=== PATIENT | female | born 1940 | race Caucasian/White ===

== ENCOUNTER 2020-07-30 15:10 | Inpatient (IN) | payer MEDICARE, SELFPAY ==
[2020-07-30] VITALS (19 sets, daily range): BP systolic 138; BP diastolic 68–88; PULSE 84–100; RESP 12–25; TEMP 37.1; O2SAT 93–100; BMI 40.8
--- NOTE | ~2020-07-30 | XR_ITS ---
XR surgery orthopedic DATE: 08/01/2020 13:25 INDICATION: ORIF intertrochanteric fracture TECHNIQUE: Multiple spot C-arm images of the left femur 128.8 seconds [id number] mGym2 COMPARISON: 07/30/2020 left hip FINDINGS: Intramedullary yonatan and interlocking compression screw of the left femur provided virtually anatomic position and alignment at the major proximal and distal fracture fragments of the intertroch anteric left hip fracture. IMPRESSION: Status post open reduction and internal fixation of comminuted left intertrochanteric hip fracture with virtually anatomic position and alignment of the major fragments Reviewed, dictated and finalized at [facility]. Reviewed, dictated and finalized at [facility].
--- NOTE | ~2020-07-30 | CT_ITS ---
EXAMINATION: CT brain wo con INDICATION: Head injury COMPARISON: None TECHNIQUE: Standard unenhanced head CT. The dose-length product (DLP) was 605.33 mGy-cm. The mA was a djusted according to patient size. Iterative reconstruction technique was employed. FINDINGS: There is no acute intraparenchymal hemorrhage. No evidence of mass lesion. No evidence of a cute infarction. There is mild periventricular and subcortical hypodensity probably related to small vessel ischemic disease. There is mild prominence of the sulci and ventricles related to cerebral atr ophy. Intracranial calcified cerebral atherosclerosis is noted. There are no extra-axial collections. There is no mass effect or midline shift. Changes in the globes are likely from ocular lens surgery. There is right frontal scalp soft tissue swelling. The visualized sinuses and mastoid air cells are well aerated. IMPRESSION: 1. No acute intracranial abnormality. 2. Age related findings. Reviewed, dictated and finalized at location [facility].
--- NOTE | ~2020-07-30 | XR_ITS ---
EXAMINATION: XR hip LT 2V w AP pelvis INDICATION: Left hip pain, initial encounter AP view the pelvis and TECHNIQUE: AP view of the pelvis and three views of the left hip are obtained. COMPARISON: None available FINDINGS: There is an acute, comminuted intertrochanteric fracture of the left proximal femur. The le sser trochanter is present on a separate fracture fragment. The femoral head is seated in the acetabu lum. No additional acute osseous abnormality is identified. The bowel gas pattern is normal. IMPRESSION: 1. Comminuted intertrochanteric fracture of the left femur. Reviewed, dictated and finalized at location [facility].
[2020-07-30] MEDS: MORPHINE SULFATE (*CRX) 2 MG/ML INJ IV PUSH ×2 (16:27→20:36)
--- NOTE | 2020-07-30 16:39 | ECG_ITS ---
Measurements Intervals [place] Rate: 80 P: -1 MT: 143 QRS: 27 QRSD: 79 T: 47 QT: 351 QTc: 406 Interpretive Statements SINUS RHYTHM MINIMAL Q WAVES- INFERIOR LEADS BORDERLINE ECG Electronically Signed On 07-30-2020 20:46:31 CDT by Aryan Callahan D.O.
--- NOTE | 2020-07-30 16:48 | ED.FALL ---
HPI - Fall General Chief Complaint: Fall <Jayleen Philip PA-C - Last Filed: 07/30/20 18:06> Stated Complaint: FALL/L HIP PAIN <Jayleen Philip PA-C - Last Filed: 07/30/20 18:06> Time Seen by Provider: 07/30/20 15:19 <Jayleen Philip PA-C - Last Filed: 07/30/20 18:06> Source: patient <ONI Boyer Last Filed: 07/30/20 18:06> Mode of arrival: EMS <ONI Boyer Last Filed: 07/30/20 18:06> Limitations: physical limitation <ONI Boyer Last Filed: 07/30/20 18:06> History of Present Illness HPI Narrative: Patient presents with chief complaint of pain to her left hip that began just prior to arrival after falling and landing on her left lateral side. Patient reports that she has pain to the outer aspect of her left hip. She reports decreased ability to move the leg without pain. Patient reports she also hit her head but denies loss of consciousness. Patient takes a daily aspirin but denies any additional blood thinner usage. Patient denies any chest pain, shortness of breath, changes of vision or hearing, nausea, vomiting, diarrhea, fever, cough or any other symptoms. Patient denies any prior hip fractures reports her only other orthopedic issue was with a shoulder. <ONI Boyer Last Filed: 07/30/20 18:06> Related Data Home Medications: Home Medications Medication Instructions Recorded Confirmed amlodipine 5 mg tablet 5 mg PO DAILY 11/05/19 07/30/20 aspirin 81 mg tablet,delayed 81 mg PO DAILY 11/05/19 07/30/20 release atorvastatin 20 mg tablet 20 mg PO DAILY 11/05/19 07/30/20 diclofenac 75 mg-misoprostol 200 1 tablet PO BID 11/05/19 07/30/20 mcg tablet,immediate,delayed release irbesartan 150 mg tablet 150 mg PO DAILY 11/05/19 07/30/20 metformin 500 mg tablet 500 mg PO DAILY 11/05/19 07/30/20 omeprazole 40 mg capsule,delayed 40 mg PO DAILY 11/05/19 07/30/20 release tramadol 50 mg tablet 50 mg PO Q6H PRN 11/05/19 07/30/20 vitamin B complex 1 tablet PO DAILY 11/05/19 hydrochlorothiazide 12.5 mg PO DAILY 07/30/20 07/30/20 <Jayleen Philip PA-C - Last Filed: 07/30/20 18:06> Allergies/Adverse Reactions: Allergies Allergy/AdvReac Type Severity Reaction Status Date / Time No Known Allergies Allergy Verified 11/05/19 08:56 <Jayleen Philip PA-C - Last Filed: 07/30/20 18:06> Review of Systems Review of Systems: Narrative: CONSTITUTIONAL: Denies fever, chills, or sweats. EYES: Denies visual changes, redness, or discharge. ENT: Denies rhinorrhea, congestion, sore throat, or otalgia. CARDIOVASCULAR: Denies chest pain, palpitations, or edema. RESPIRATORY: Denies cough or dyspnea. GASTROINTESTINAL: Denies abdominal pain, nausea, vomiting, or diarrhea. GENITOURINARY: Denies dysuria or hematuria. SKIN: Denies rash or itching. MUSCULOSKELETAL: Reports left hip pain denies back pain or myalgia NEUROLOGIC: Denies headache, numbness, dizziness, or weakness. PSYCHIATRIC: Denies anxiety or depression. <Jayleen Philip PA-C - Last Filed: 07/30/20 18:06> [facility] Past Medical History Medical History: Medical History (Updated 07/30/20 @ 18:53 by Fani Yao MD) Melanoma <Jayleen Philip PA-C - Last Filed: 07/30/20 18:06> Surgical History Surgical History: Surgical History (Updated 11/05/19 @ 09:01 by Felisha Lawson CMA) History of ankle surgery History of cholecystectomy <Jayleen Philip PA-C - Last Filed: 07/30/20 18:06> Exam Narrative: Exam Narrative: GENERAL: Well-appearing, well-nourished. Patient appears intermittently uncomfortable. More comfortable with pillow under lateral left hip. HEAD: Normocephalic, atraumatic. No lacerations or hematomas appreciated. EYES: PERRLA and EOMI. ENT: Nares clear, no rhinorrhea or epistaxis. Mucous membranes moist. Oropharynx without tonsillar hypertrophy exudate or other lesions. Bilateral TMs pearly guevara nonbulging NECK: Supple. No adenopathy or
[2020-07-30] MEDS: SODIUM CHLORIDE 0.9% IV 1,000 ML 80 ML IV CONT (16:50)
[2020-07-30 16:56] LABS: Basophils Percent Auto 0.1 % (0.2-1.2); Eosinophils Absolute Auto 0.2 K/mm3 (0-0.3); Eosinophils Percent Auto 1.3 % (0-4.4); Hematocrit 34.1 % (37.0-47.0); Hemoglobin 11.2 g/dL (12.0-15.0); Immature Granulocyte Absolute 0.24 K/mm3 (0.00-0.031); Immature Granulocyte Percent A 1.7 % (0-0.5); Lymphocytes Absolute Auto 1.57 K/mm3 (0.9-3.2); Mean Corpuscular HGB Conc 32.8 g/dl (32-36); Mean Corpuscular Volume 97.4 fl (80-100); Mean Platelet Volume 8.2 fl (7.4-10.4); Monocytes Absolute Auto 1.1 K/mm3 (0.1-0.6); Monocytes Percent Auto 7.9 % (2.6-8.5); Neutrophils Absolute Auto 11.1 K/mm3 (1.3-6.7); Platelet Count Result 327 k/mm3 (150-375); Red Cell Distribution Width 12.9 % (11.5-14.5); White Blood Count 14.2 K/mm3 (4.5-10.0)
[2020-07-30 17:05] LABS: Prothrombin Time 13.3 Seconds (11.1-14.7)
[2020-07-30 17:06] LABS: Partial Thromboplastin Time 22.6 SECONDS (22.3-36.8)
--- NOTE | 2020-07-30 17:10 | PC.NURSE ---
Pt taken to CT scan
[2020-07-30 17:12] LABS: Alanine Aminotransferase 25 U/L (4-35); Albumin Level 3.6 g/dL (3.5-5.1); Alkaline Phosphatase 69 U/L (38-126); Anion Gap 6 mmol/L (8-16); Aspartate Amino Transferase 22 U/L (14-36); Bilirubin,Total 0.4 mg/dL (0.2-1.3); Blood Urea Nitrogen 39 mg/dL (7-17); Calcium 8.8 mg/dL (8.4-10.2); Carbon Dioxide 28 mmol/L (22-30); Chloride 104 mmol/L (98-107); Estimated CRCL calculation 30 ml/min; Estimated Glomerular Filt Rate 43; Glucose 105 mg/dL (65-105); Potassium 4.2 mmol/L (3.4-5.0); Sodium 138 mmol/L (137-145)
--- NOTE | 2020-07-30 20:09 | ADMGEN ---
This patient, Ephraim Marrufo, was admitted to [facility] Surg Room 305-02. Patient/family oriented to hospital policies and general routines including ID bracelet, bed and alarms, visiting hours, pain management, procedures, bathroom and other care routines, personal items, smoking policy, room service/diet, and visiting hours. Valuables list has been completed. Information on how to activate the Rapid Response Team has been discussed. Patient/Family are encouraged to report perceived risks to care and to ask questions if they do not understand what they are told or what they should do.
[2020-07-31] MEDS: MORPHINE SULFATE (*CRX) 2 MG/ML INJ IV PUSH ×4 (00:22→21:22)
--- NOTE | 2020-07-31 03:52 | ECG_ITS ---
Measurements Intervals [place] Rate: 80 P: 69 CT: 154 QRS: 48 QRSD: 78 T: 51 QT: 350 QTc: 406 Interpretive Statements SINUS RHYTHM BASELINE ARTIFACT- I, III, AVL, AVF, V2 NORMAL ECG Electronically Signed On 07-31-2020 7:29:17 CDT by Aryan Callahan D.O.
--- NOTE | 2020-07-31 05:29 | HP_ITS ---
DATE OF SERVICE: 07/31/2020 TIME: 0300 hours. CHIEF COMPLAINT: Fall with left hip pain. HISTORY OF PRESENT ILLNESS: The patient is an 79-year-old female with a past medical history of type 2 diabetes mellitus, hypertension, hyperlipidemia, and hyperparathyroidism status post parathyroidectomy, who presented to the ER on July 30, 2020, after having a fall. The patient reported that she had been out earlier in the day grocery shopping and had returned home to put up her groceries. She turned around in her kitchen and was rushing across the floor when she somehow tripped and fell. She felt as if she was air-borne before she landed on her left hip. She did hit her head on the social service agency director on her way down, but denies any headache or loss of consciousness. She reported instant severe pain in her left hip and was unable to get up. She lives at [facility] living with her . She was able to get her to hand her the phone so that she could call a friend who notified [facility] staff about the fall. The patient has never had a prior fracture. She reports that she is relatively active and has never had any chest pain, palpitations, dyspnea on exertion, or lower extremity swelling. She denies any nausea or vomiting, or abdominal complaints. Her last bowel movement was within the last day. She denies any dysuria or changes in urinary frequency. She recently had a parathyroidectomy in June and had her followup appointment with the doctor a few days ago. She denies any visual changes or headache currently. REVIEW OF SYSTEMS: Except as documented, all systems were reviewed and are negative. PAST MEDICAL HISTORY: 1. Type 2 diabetes mellitus. 2. Diabetic peripheral neuropathy, mainly in the feet. 3. Essential hypertension. 4. Hyperlipidemia. 5. Hyperparathyroidism, status post parathyroidectomy in June 2020. 6. Malignant melanoma removed from the left arm several years ago. 7. Cholecystectomy. 8. Left shoulder arthroplasty. 9. Bilateral cataract extraction. SOCIAL HISTORY: The patient lives at [facility] living with her who is suffering from dementia. She has 2 adult daughters who are relatively healthy. She and her have been since 1955. She is a former smoker and used to smoke 2 packs per day for approximately 30 years. She quit smoking in her early 50s. She reports that she never drinks alcohol at all and does not use drugs. She is a homemaker. CODE STATUS: Full code. ALLERGIES: NO KNOWN DRUG ALLERGIES. HOME MEDICATIONS: Please see electronic medical record. Home medications were reviewed and adjustment was made. PHYSICAL EXAMINATION: VITAL SIGNS: Temperature is 97, pulse is 68, respiratory rate 18, blood pressure 178/68, saturating 95% on room air, weight is 124 pounds. GENERAL: The patient is in no acute distress. Well developed, well nourished, appears younger than stated age. HEENT: Mucous membranes are dry. No oropharyngeal erythema. No scleral icterus. No conjunctival pallor. No thyromegaly. Head is normocephalic, atraumatic. HEMATOLOGIC/LYMPHATIC: No intercervical or submandibular lymphadenopathy. No petechiae or bruising. LUNGS: Clear to auscultation bilaterally. No increased work of breathing. CARDIOVASCULAR: Normal S1, S2. Regular rate, regular rhythm. No murmurs. 2+ pulses bilateral radial and pedal. ABDOMEN: Soft, nontender, nondistended with positive bowel sounds. NEUROLOGIC: The patient is alert and oriented x4. Speech is clear. No facial asymmetry. No localizing neurologic deficits noted on limited exam. PSYCHIATRIC: Appropriate mood and affect. Pleasant and cooperative. INTEGUMENT: No rashes. No bruising. Generalized pallor, no
[2020-07-31] MEDS: SODIUM CHLORIDE 0.9% IV 1,000 ML 80 ML IV CONT ×2 (05:59→21:27)
[2020-07-31 06:00] VITALS: BP 124/60; PULSE 81; RESP 18; TEMP 36.6; O2SAT 98
[2020-07-31] MEDS: amLODIPine BESYLATE 5 MG TABLET PO (09:11)
[2020-07-31] MEDS: ASPIRIN 81 MG ENTERIC TABLET PO (09:12)
[2020-07-31] MEDS: ATORVASTATIN 20 MG TABLET PO (09:12)
[2020-07-31] MEDS: PANTOPRAZOLE 40 MG TABLET PO ×2 (09:12→16:24)
[2020-07-31] MEDS: hydroCHLOROthiazide 12.5 MG CAPSULE PO (09:12)
[2020-07-31] MEDS: IRBESARTAN 150 MG TABLET PO (09:12)
--- NOTE | 2020-07-31 10:43 | WPDANESEPPF ---
Anes - Initial Pre Proc Eval Procedure: Operation Date: 08/01/20 11:30 Proposed Procedures p Intertrochanteric Nail Left Hip - Darron Llanos MD Date/Time: 07/31/20 10:43 Surgeon: MALLORIE Herring Pre Op Diagnosis: COMMINUTED LEFT INTRATROCHANTERIC FRACTURE Patient Data Age: 79 Gender: F Height: 1.78 m Weight: 129.2 kg Last Vital Signs Temp 36.6 C 07/31/20 06:00 Pulse 81 07/31/20 06:00 Resp 18 07/31/20 06:00 BP 124/60 07/31/20 06:00 Pulse Ox 98 07/31/20 06:00 Allergies Allergy/AdvReac Type Severity Reaction Status Date / Time No Known Allergies Allergy Verified 11/05/19 08:56 Home Medications Medication Instructions Recorded Confirmed Type amlodipine 5 mg tablet 5 mg PO DAILY 11/05/19 07/30/20 History aspirin 81 mg tablet,delayed 81 mg PO DAILY 11/05/19 07/30/20 History release atorvastatin 20 mg tablet 20 mg PO DAILY 11/05/19 07/30/20 History diclofenac 75 mg-misoprostol 200 1 tablet PO BID 11/05/19 07/30/20 History mcg tablet,immediate,delayed release irbesartan 150 mg tablet 150 mg PO DAILY 11/05/19 07/30/20 History omeprazole 40 mg capsule,delayed 40 mg PO DAILY 11/05/19 07/30/20 History release tramadol 50 mg tablet 50 mg PO Q6H PRN 11/05/19 07/30/20 History hydrochlorothiazide 12.5 mg PO DAILY 07/30/20 07/30/20 History metformin 750 mg PO BID 07/30/20 07/30/20 History Laboratory Tests 07/30/20 07/30/20 07/30/20 16:45 16:45 16:45 WBC 14.2 K/mm3 H K/mm3 (4.5-10.0) RBC 3.50 M/mm3 L M/mm3 (4.2-5.4) Hgb 11.2 g/dL L g/dL (12.0-15.0) Hct 34.1 % L % (37.0-47.0) MCV 97.4 fl fl (80-100) MCH 32.0 pg pg (26-34) MCHC 32.8 g/dl g/dl (32-36) RDW 12.9 % % (11.5-14.5) Plt Count 327 k/mm3 k/mm3 (150-375) MPV 8.2 fl fl (7.4-10.4) Immature Gran % (Auto) 1.7 % H % (0-0.5) Neut % (Auto) 78.0 % H % (45.5-73.1) Lymph % (Auto) 11.0 % L % (18.3-44.2) Alcorn % (Auto) 7.9 % % (2.6-8.5) Eos % (Auto) 1.3 % % (0-4.4) Baso % (Auto) 0.1 % L % (0.2-1.2) Lymph # (Auto) 1.57 K/mm3 K/mm3 (0.9-3.2) Alcorn # (Auto) 1.1 K/mm3 H K/mm3 (0.1-0.6) Eos # (Auto) 0.2 K/mm3 K/mm3 (0-0.3) Baso # (Auto) 0.0 K/mm3 K/mm3 (0.0-0.1) Abs Immat Gran (auto) 0.24 K/mm3 H K/mm3 (0.00-0.031) Absolute Neuts (auto) 11.1 K/mm3 H K/mm3 (1.3-6.7) Absolute Nucleated RBC 0.0 K/mm3 K/mm3 (0.0-0.012) Nucleated RBC % 0.0 % % (0.0-0.2) PT 13.3 Seconds Seconds (11.1-14.7) INR 1.0 APTT 22.6 SECONDS SECONDS (22.3-36.8) Sodium 138 mmol/L mmol/L (137-145) Potassium 4.2 mmol/L mmol/L (3.4-5.0) Chloride 104 mmol/L mmol/L (98-107) Carbon Dioxide 28 mmol/L mmol/L (22-30) Anion Gap 6 mmol/L L mmol/L (8-16) BUN 39 mg/dL H mg/dL (7-17) Creatinine 1.20 mg/dL H mg/dL (0.7-1.0) Estim Creat Clear Calc 30 ml/min ml/min Estimated GFR 43 L (59 - ) Glucose 105 mg/dL mg/dL (65-105) Calcium 8.8 mg/dL mg/dL (8.4-10.2) Total Bilirubin 0.4 mg/dL mg/dL (0.2-1.3) AST 22 U/L U/L (14-36) ALT 25 U/L U/L (4-35) Alkaline Phosphatase 69 U/L U/L (38-126) Total Protein 6.0 g/dL L g/dL (6.3-8.2) Albumin 3.6 g/dL g/dL (3.5-5.1) Blood Type Antibody Screen 07/30/20 16:48 WBC RBC Hgb Hct MCV MCH MCHC RDW Plt Count MPV Immature Gran % (Auto) Neut % (Auto) Lymph % (Auto) Alcorn % (Auto) Eos % (Auto) Baso % (Auto) Lymph # (Auto) Alcorn # (Auto) Eos # (Auto) Baso # (Auto) Abs Immat Gr
--- NOTE | 2020-07-31 11:17 | PM.IMPN ---
Progress Note: A&P Assessment and Plan (1) Closed comminuted fracture of left hip: Qualifiers: Encounter type: initial encounter Qualified Code(s): S72.092A - Other fracture of head and neck of left femur, initial encounter for closed fracture Code(s): S72.092A - Other fracture of head and neck of left femur, initial encounter for closed fracture Status: Acute Assessment and Plan: Patient presented with left hip pain after a fall at home. XR demonstrates comminuted intertrochanteric left femur fracture. Dr. Llanos consulted - appreciate recommendations. Believe plan is for surgical intervention tomorrow. Postoperative wound care, pain control, and DVT prophylaxis per orthopedic surgery recommendations. (2) Diabetes: Qualifiers: Diabetes mellitus type: type 2 Diabetes mellitus termite inspector insulin use: without termite inspector use Diabetes mellitus complication status: without complication Qualified Code(s): E11.9 - Type 2 diabetes mellitus without complications Code(s): E11.9 - Type 2 diabetes mellitus without complications Status: Chronic Assessment and Plan: Blood sugars are appropriate. Metformin is held. Continue to monitor with Accu-Cheks and adjust treatment as needed. (3) Hypertension: Qualifiers: Hypertension type: essential hypertension Qualified Code(s): I10 - Essential (primary) hypertension Code(s): I10 - Essential (primary) hypertension Status: Chronic Assessment and Plan: BPs reviewed and stable. Continue home Norvasc and HCTZ. Monitor BP and adjust treatment as needed. (4) Hyperlipidemia: Qualifiers: Hyperlipidemia type: unspecified Qualified Code(s): E78.5 - Hyperlipidemia, unspecified Code(s): E78.5 - Hyperlipidemia, unspecified Status: Chronic Assessment and Plan: Continue home statin therapy. (5) FABRIZIO (acute kidney injury): Code(s): N17.9 - Acute kidney failure, unspecified Status: Resolved Assessment and Plan: Cr 1.2 on arrival, improved to 0.8 this morning. Will monitor renal function. (6) Hypomagnesemia: Code(s): E83.42 - Hypomagnesemia Status: Acute Assessment and Plan: Magnesium 1.3, replace parenterally. Recheck in AM. Subjective Date/time seen: 07/31/20 1000 Interval history: Ms. Marrufo is a pleasant 79yo F admitted for left hip fracture. She rates her pain 3/10 at this time, otherwise offers no complaints. She denies chest pain, shortness of breath, nausea or vomiting. Review of Systems Review of Systems: All systems reviewed & are unremarkable except as noted in HPI and below Exam Narrative: Exam Narrative: General: Female resting comfortably supine in bed in no acute distress. HEENT: Normocephalic, EOMI, oral mucosa moist. Cardiovascular: Rate and rhythm are regular. Respiratory: Lungs clear to auscultation anteriorly and laterally. Non-labored breathing. Tolerating room air. Abdomen: Soft, non-tender, non-distended, bowel sounds present. Extremities: Peripheral pulses intact. No edema. Left lower extremity is shortened and externally rotated, neurovascularly intact distal to the surgical site. Neuro: No focal neurological deficits. Speech is clear. Objective Data Vital Signs Vital Signs: Last Vital Signs Temp 98.4 F 07/31/20 14:00 Pulse 94 07/31/20 14:00 Resp 16 07/31/20 14:00 BP 124/49 L 07/31/20 14:00 Pulse Ox 96 07/31/20 14:00 Intake/Output Intake/Output: Intake & Output 10/0507/29/20 07/30/20 07/31/20 23:59 23:59 23:59 23:59 Intake Total 0 Output Total 600 Balance -600 Meds/Results Medications: Active
[2020-07-31 11:30] LABS: Glucose Point of Care 82 (65-105)
[2020-07-31 12:14] LABS: Basophils Percent Auto 0.2 % (0.2-1.2); Eosinophils Absolute Auto 0.2 K/mm3 (0-0.3); Hematocrit 28.8 % (37.0-47.0); Hemoglobin 9.6 g/dL (12.0-15.0); Immature Granulocyte Absolute 0.11 K/mm3 (0.00-0.031); Lymphocytes Absolute Auto 1.27 K/mm3 (0.9-3.2); Lymphocytes Percent Auto 11.3 % (18.3-44.2); Mean Corpuscular HGB Conc 33.3 g/dl (32-36); Mean Corpuscular Hemoglobin 32.3 pg (26-34); Mean Platelet Volume 8.6 fl (7.4-10.4); Monocytes Absolute Auto 1.1 K/mm3 (0.1-0.6); Monocytes Percent Auto 9.8 % (2.6-8.5); Neutrophils Absolute Auto 8.5 K/mm3 (1.3-6.7); Neutrophils Percent Auto 75.7 % (45.5-73.1); Platelet Count Result 280 k/mm3 (150-375); Red Blood Count 2.97 M/mm3 (4.2-5.4); Red Cell Distribution Width 12.7 % (11.5-14.5); White Blood Count 11.3 K/mm3 (4.5-10.0)
[2020-07-31 12:28] LABS: Anion Gap 7 mmol/L (8-16); Blood Urea Nitrogen 25 mg/dL (7-17); Calcium 8.2 mg/dL (8.4-10.2); Carbon Dioxide 27 mmol/L (22-30); Chloride 106 mmol/L (98-107); Estimated CRCL calculation 70 ml/min; Estimated Glomerular Filt Rate > 60; Glucose 96 mg/dL (65-105); Magnesium 1.3 mg/dL (1.6-2.3); Potassium 3.8 mmol/L (3.4-5.0); Sodium 140 mmol/L (137-145)
[2020-07-31 14:00] VITALS: BP 124/49; PULSE 94; RESP 16; TEMP 36.9; O2SAT 96
[2020-07-31] MEDS: MAGNESIUM SULF 2 GM/WATER 50ML 2 GM/50 ML BAG IVPB (16:02)
[2020-07-31] MEDS: MAGNESIUM SULF 1 GM/D5W 100 ML 1 GM/100 ML BAG IVPB (16:02)
--- NOTE | 2020-07-31 16:57 | PM.CNOR ---
Assessment and Plan Assessment and plan (1) Closed comminuted fracture of left hip: Qualifiers: Encounter type: initial encounter Qualified Code(s): S72.092A - Other fracture of head and neck of left femur, initial encounter for closed fracture Code(s): S72.092A - Other fracture of head and neck of left femur, initial encounter for closed fracture Status: Acute Assessment and Plan: Comminuted and displaced intertrochanteric fracture of the left hip. Significant deformity. Will benefit from ORIF with Cephalomedullary nail. Discussed the significant risks with the patient and her daughter. Benefits and alternatives reviewed. Will likely need halfway for several weeks. Anticipate weight-bearing as tolerated. History of Present Illness HPI Consult date: 07/31/20 Chief complaint: COMMINUTED LEFT INTRATROCHANTERIC FRACTURE Narrative: Patient complains of acute hip pain. Fell from standing height. Admitted through the emergency room for definitive managmenet. No previous hip pain. Comfortable at rest. No numbness, tingling, or other associated symptoms. Review of Systems Review of Systems: Narrative: Denies loss of consciousness. All systems reviewed & are unremarkable except as noted in HPI and below PMFSH Past Medical History Medical History Diabetes Hyperlipidemia Hypertension Melanoma Surgical History Surgical History History of ankle surgery History of cholecystectomy Family History Family History Father CHF (congestive heart failure) Sibling CHF (congestive heart failure) Social History Social History Smoking packs per day: 2 Smoking cigarettes per day: 40.0 Years smoked: 25 Smoking pack-years: 50.00 Smoking status: Former smoker Alcohol intake: never Substance use: never Spiritual care concerns: No Meds Home Medications and Allergies Home Medications Medication Instructions Recorded Confirmed Type amlodipine 5 mg tablet 5 mg PO DAILY 11/05/19 07/30/20 History aspirin 81 mg tablet,delayed 81 mg PO DAILY 11/05/19 07/30/20 History release atorvastatin 20 mg tablet 20 mg PO DAILY 11/05/19 07/30/20 History diclofenac 75 mg-misoprostol 200 1 tablet PO BID 11/05/19 07/30/20 History mcg tablet,immediate,delayed release irbesartan 150 mg tablet 150 mg PO DAILY 11/05/19 07/30/20 History omeprazole 40 mg capsule,delayed 40 mg PO DAILY 11/05/19 07/30/20 History release tramadol 50 mg tablet 50 mg PO Q6H PRN 11/05/19 07/30/20 History hydrochlorothiazide 12.5 mg PO DAILY 07/30/20 07/30/20 History metformin 750 mg PO BID 07/30/20 07/30/20 History Allergies Allergy/AdvReac Type Severity Reaction Status Date / Time No Known Allergies Allergy Verified 11/05/19 08:56 Vital Signs Vital Signs - 24 hr 07/30/20 17:02 07/30/20 17:26 07/30/20 17:30 Temperature Pulse Rate 100 84 85 Respiratory Rate 17 19 19 Blood Pressure Pulse Oximetry 100 98 100 07/30/20 18:00 07/30/20 18:20 07/30/20 18:30 Temperature Pulse Rate 86 92 91 Respiratory Rate 16 22 H 20 Blood Pressure Pulse Oximetry 99 98 98 07/30/20 18:45 07/30/20 19:00 07/30/20 19:24 Temperature Pulse Rate 89 91 92 Respiratory Rate 17 15 25 H Blood Pressure Pulse Oximetry 98 99 98 07/30/20 19:30 07/30/20 19:41 07/30/20 20:00 Temperature 37.1 C Pulse Rate 90 90 88 Respiratory Rate 15 15 18 Blood Pressure 138/68 Pulse Oximetry 98 98 95 07/31/20 06:00 07/31/20 14:00 Temperature 36.6 C 36.9 C Pulse Rate 81 94 Respiratory Rate 18 16 Blood Pressure 124/60 124/49 L Pulse Oximetry 98 96 Exam Narrative: Exam Narrative: Lower extremity shortened and externally rotated. Const: General: no acute distres
[2020-07-31 17:19] LABS: Glucose Point of Care 142 (65-105)
[2020-07-31 22:00] VITALS: BP 129/57; PULSE 86; RESP 16; TEMP 36.5; O2SAT 98
[2020-08-01] VITALS (14 sets, daily range): BP systolic 86–134; BP diastolic 43–76; PULSE 70–101; RESP 12–20; TEMP 36.2–37.7; O2SAT 92–100
[2020-08-01 00:35] LABS: Glucose Point of Care 169 (65-105)
[2020-08-01] MEDS: MORPHINE SULFATE (*CRX) 2 MG/ML INJ IV PUSH ×3 (04:38→22:17)
[2020-08-01 06:43] LABS: Basophils Percent Auto 0.2 % (0.2-1.2); Eosinophils Absolute Auto 0.3 K/mm3 (0-0.3); Eosinophils Percent Auto 2.8 % (0-4.4); Hematocrit 26.5 % (37.0-47.0); Hemoglobin 8.7 g/dL (12.0-15.0); Immature Granulocyte Absolute 0.09 K/mm3 (0.00-0.031); Immature Granulocyte Percent A 0.8 % (0-0.5); Lymphocytes Absolute Auto 1.28 K/mm3 (0.9-3.2); Lymphocytes Percent Auto 11.2 % (18.3-44.2); Mean Corpuscular HGB Conc 32.8 g/dl (32-36); Mean Corpuscular Hemoglobin 32.1 pg (26-34); Mean Corpuscular Volume 97.8 fl (80-100); Mean Platelet Volume 8.2 fl (7.4-10.4); Monocytes Absolute Auto 1.3 K/mm3 (0.1-0.6); Neutrophils Absolute Auto 8.5 K/mm3 (1.3-6.7); Platelet Count Result 228 k/mm3 (150-375); Red Blood Count 2.71 M/mm3 (4.2-5.4); Red Cell Distribution Width 12.7 % (11.5-14.5); White Blood Count 11.4 K/mm3 (4.5-10.0)
[2020-08-01 07:07] LABS: Anion Gap 5 mmol/L (8-16); Blood Urea Nitrogen 20 mg/dL (7-17); Carbon Dioxide 27 mmol/L (22-30); Chloride 106 mmol/L (98-107); Estimated CRCL calculation 70 ml/min; Estimated Glomerular Filt Rate > 60; Glucose 121 mg/dL (65-105); Sodium 138 mmol/L (137-145)
[2020-08-01 08:02] LABS: Hemoglobin A1C 5.8 % (<5.7)
[2020-08-01 08:05] LABS: Magnesium 1.6 mg/dL (1.6-2.3)
[2020-08-01 08:23] LABS: Glucose Point of Care 113 (65-105)
[2020-08-01] MEDS: amLODIPine BESYLATE 5 MG TABLET PO (08:34)
[2020-08-01] MEDS: PANTOPRAZOLE 40 MG TABLET PO ×2 (08:34→17:23)
[2020-08-01] MEDS: SODIUM CHLORIDE 0.9% IV 1,000 ML 80 ML IV CONT (09:21)
--- NOTE | 2020-08-01 10:20 | PC.NURSE ---
To OR per bed, IV infusing. Report given to - sbar faxed to OR.
--- NOTE | 2020-08-01 11:11 | WPDHPUPDATE1 ---
History and Physical Update Update Date/Time: 08/01/20 11:11 History and Physical has been reviewed, including an updated exam of the patient. There are NO changes in the patient's condition. Risks, benefits, and alternatives have been discussed and questions answered. Patient agrees to proceed with procedure.
--- NOTE | 2020-08-01 11:25 | SUR.PREOP ---
Documented weight is off by quite a lot. Due to pain I can't put her on a scale right now so documented a stated weight which is visually much more believable.
[2020-08-01] MEDS: ceFAZolin SODIUM 1 GM VIAL 2 GM IV PUSH (12:17)
[2020-08-01] MEDS: LACTATED RINGERS 1,000 ML 30 ML IV CONT (13:00)
[2020-08-01 13:59] LABS: SARS-CoV-2 RNA PCR Negative
[2020-08-01 14:05] LABS: Glucose Point of Care 130 (65-105)
--- NOTE | 2020-08-01 14:09 | PM.IMPN ---
Progress Note: A&P Assessment and Plan (1) Closed comminuted fracture of left hip: Qualifiers: Encounter type: initial encounter Qualified Code(s): S72.092A - Other fracture of head and neck of left femur, initial encounter for closed fracture Code(s): S72.092A - Other fracture of head and neck of left femur, initial encounter for closed fracture Status: Acute Assessment and Plan: Patient presented with left hip pain after a fall at home. XR demonstrates comminuted intertrochanteric left femur fracture. Dr. Llanos following - appreciate input. Plan is for surgical repair this morning. Postoperative wound care, pain control, and DVT prophylaxis per orthopedic surgery recommendations. (2) Diabetes: Qualifiers: Diabetes mellitus type: type 2 Diabetes mellitus extermination inspector insulin use: without fdc use Diabetes mellitus complication status: without complication Qualified Code(s): E11.9 - Type 2 diabetes mellitus without complications Code(s): E11.9 - Type 2 diabetes mellitus without complications Status: Chronic Assessment and Plan: Blood sugars are appropriate. Metformin is held. Continue to monitor with Accu-Cheks and adjust treatment as needed. (3) Hypertension: Qualifiers: Hypertension type: essential hypertension Qualified Code(s): I10 - Essential (primary) hypertension Code(s): I10 - Essential (primary) hypertension Status: Chronic Assessment and Plan: BPs reviewed, some hypotension in PACU now resolved; last BP 113/76. Will hold morning Norvasc and HCTZ and reassess in AM. Continue to monitor BP and adjust treatment as needed. (4) Hyperlipidemia: Qualifiers: Hyperlipidemia type: unspecified Qualified Code(s): E78.5 - Hyperlipidemia, unspecified Code(s): E78.5 - Hyperlipidemia, unspecified Status: Chronic Assessment and Plan: Continue home statin therapy. (5) FABRIZIO (acute kidney injury): Code(s): N17.9 - Acute kidney failure, unspecified Status: Resolved Assessment and Plan: Cr 1.2 on arrival, improved to 0.8. Will monitor renal function. (6) Hypomagnesemia: Code(s): E83.42 - Hypomagnesemia Status: Acute Assessment and Plan: Magnesium 1.6, replaced. Recheck in AM. Subjective Date/time seen: 08/01/20 1000 Interval history: Ms. Marrufo is a pleasant 79yo F admitted for left hip fracture. She reports feeling pretty well this morning. She describes some back discomfort from lying in bed compared to her hip discomfort which is reasonably controlled at this time. No chest pain, shortness of breath, nausea or vomiting. She offers no complaints and is heading to the OR shortly for surgery with Dr Llanos. Review of Systems Review of Systems: All systems reviewed & are unremarkable except as noted in HPI and below Exam Narrative: Exam Narrative: General: Female resting comfortably supine in bed in no acute distress. HEENT: Normocephalic, EOMI, oral mucosa moist. Cardiovascular: Rate and rhythm are regular. Respiratory: Lungs clear to auscultation anteriorly and laterally. Non-labored breathing. Tolerating room air. Abdomen: Soft, non-tender, non-distended, bowel sounds present. Extremities: Peripheral pulses intact. No edema. Left lower extremity is shortened and externally rotated, neurovascularly intact distal to the surgical site. Neuro: No focal neurological deficits. Speech is clear. Objective Data Vital Signs Vital Signs: Last Vital Signs Temp 98.2 F 08/01/20 13:55 Pulse 92 08/01/20 15:24 Resp 18 08/01/20 15:24 BP 113/76 08/01/20 15:24 Pulse Ox 98 10/0
[2020-08-01] MEDS: fentaNYL CITRATE INJ (*CRX) 100 MCG/2 ML VIAL 25 MCG IV PUSH ×3 (14:26→15:07)
--- NOTE | 2020-08-01 14:40 | P.OP_ITS ---
Procedure Note - Detailed Date of procedure: 08/01/20 Pre-op diagnosis: COMMINUTED LEFT INTRATROCHANTERIC FRACTURE Post-op diagnosis: same Procedure performed: ORIF intertrochanteric fracture with long Cephalomedullary nail. Implants: Kandi Gamma nail, 380mm; 95mm lag screw. Anesthesia: GETA Surgeon: Darron Llanos MD [place]: Corrina Bolton PA-C Estimated blood loss (mL): 150 Drains: No Pathology: none sent Complications: None Condition: stable Disposition: PACU Findings: Operative details. The patient was given a general anesthetic, then carefully placed in fracture table. Sterile prep and drape performed in the usual fashion. Sterile curtain was used. Gentle traction was utilized to reduce the fracture. Fluoroscopy was used to confirm anatomic reduction and a proper placement of the implants. A longitudinal incision was created at the tip of the trochanter. The deep fascia was incised. The cannulated awl was used to open the proximal femur. The guidewire was placed across the fracture. The reamer was used to open the canal. Sequential reaming was performed distally to 11.5 mm. Bone quality was good. Chatter obtained at the isthmus. The gamma nail was placed across the fracture site. A separate incision was made for placement of the cannulated guide sleeve. This was extended slightly to allow for placement of a bone hook. This was placed over the neck fragment in attempt to maintain and improve the reduction. The guide pin was placed in the center of the femoral head, slightly inferior. Appropriate measurement was taken. The pin was over reamed. The screw was placed with excellent purchase. The set screw was placed proximally and backed out a quater turn. The jig was removed. Distal locking was performed using a freehand technique. The wounds were irrigated. The deep fascia was closed with #1 Vicryl suture followed by 2- 0 Vicryl suture and greta. Sterile dressing was applied. The patient was transferred to the recovery room in stable condition. There were no complications.
--- NOTE | 2020-08-01 15:30 | PC.NURSE ---
Returned from OR per bed. Report received from RN. daughter at bedside. patient tearful states felt afraid in OR.
[2020-08-01] MEDS: MAGNESIUM SULF 2 GM/WATER 50ML 2 GM/50 ML BAG IVPB (15:52)
[2020-08-01] MEDS: KCL 20 MEQ/D5/0.45% SOD CHL 1,000 ML 80 ML IV CONT (15:52)
[2020-08-01 17:24] LABS: Glucose Point of Care 240 (65-105)
[2020-08-01] MEDS: DOCUSATE SODIUM 100 MG CAPSULE PO (20:36)
[2020-08-01 20:42] LABS: Glucose Point of Care 288 (65-105)
[2020-08-02 02:00] VITALS: BP 119/53; PULSE 86; RESP 16; TEMP 35.9; O2SAT 100
[2020-08-02] MEDS: MORPHINE SULFATE (*CRX) 2 MG/ML INJ IV PUSH ×2 (04:36→09:01)
[2020-08-02 04:57] LABS: Basophils Percent Auto 0.1 % (0.2-1.2); Eosinophils Absolute Auto 0.1 K/mm3 (0-0.3); Eosinophils Percent Auto 0.6 % (0-4.4); Hematocrit 23.6 % (37.0-47.0); Hemoglobin 7.8 g/dL (12.0-15.0); Immature Granulocyte Percent A 0.7 % (0-0.5); Lymphocytes Absolute Auto 1.12 K/mm3 (0.9-3.2); Mean Corpuscular HGB Conc 33.1 g/dl (32-36); Mean Corpuscular Hemoglobin 32.1 pg (26-34); Mean Corpuscular Volume 97.1 fl (80-100); Mean Platelet Volume 8.5 fl (7.4-10.4); Monocytes Absolute Auto 1.1 K/mm3 (0.1-0.6); Monocytes Percent Auto 7.5 % (2.6-8.5); Neutrophils Absolute Auto 11.6 K/mm3 (1.3-6.7); Neutrophils Percent Auto 83.1 % (45.5-73.1); Platelet Count Result 207 k/mm3 (150-375); Red Blood Count 2.43 M/mm3 (4.2-5.4); Red Cell Distribution Width 12.5 % (11.5-14.5); White Blood Count 13.9 K/mm3 (4.5-10.0)
[2020-08-02 05:24] LABS: Anion Gap 4 mmol/L (8-16); Blood Urea Nitrogen 17 mg/dL (7-17); Calcium 7.6 mg/dL (8.4-10.2); Carbon Dioxide 25 mmol/L (22-30); Chloride 105 mmol/L (98-107); Estimated CRCL calculation 59 ml/min; Estimated Glomerular Filt Rate > 60; Glucose 252 mg/dL (65-105); Magnesium 1.9 mg/dL (1.6-2.3); Potassium 4.5 mmol/L (3.4-5.0); Sodium 134 mmol/L (137-145)
[2020-08-02 06:00] VITALS: BP 123/58; PULSE 87; RESP 18; TEMP 36.2; O2SAT 100
[2020-08-02 08:00] VITALS: PULSE 87; RESP 18; O2SAT 100
[2020-08-02] MEDS: ASPIRIN 81 MG ENTERIC TABLET PO (08:57)
[2020-08-02] MEDS: hydroCHLOROthiazide 12.5 MG CAPSULE PO (08:57)
[2020-08-02] MEDS: ENOXAPARIN 40 MG/0.4 ML SYRINGE SUB-Q (08:57)
[2020-08-02] MEDS: DOCUSATE SODIUM 100 MG CAPSULE PO ×2 (08:57→21:39)
[2020-08-02] MEDS: IRBESARTAN 150 MG TABLET PO (08:57)
[2020-08-02] MEDS: PANTOPRAZOLE 40 MG TABLET PO ×2 (08:57→17:20)
[2020-08-02] MEDS: amLODIPine BESYLATE 5 MG TABLET PO (08:58)
[2020-08-02] MEDS: ATORVASTATIN 20 MG TABLET PO (08:58)
[2020-08-02 09:18] LABS: Glucose Point of Care 113 (65-105)
--- NOTE | 2020-08-02 11:50 | WPDANESPN ---
Anes - Prog Note Post-Op Date/Time: 08/02/20 11:50 Cardiovascular status: normal Respiratory status: normal Airway patency: baseline Mental status: baseline Post-Op hydration status: normal Vital Signs: Last Vital Signs Temp 36.2 C L 08/02/20 06:00 Pulse 87 08/02/20 08:00 Resp 18 08/02/20 08:00 BP 123/58 L 08/02/20 06:00 Pulse Ox 100 08/02/20 08:00 Pain Score (VAS): 0 I/O: Intake & Output 08/01/20 08/02/20 08/02/20 23:59 07:59 15:59 Intake Total 840 1400 240 Output Total 1100 Balance 840 300 240 Laboratory Tests 08/02/20 04:18 08/02/20 04:18 08/01/20 08/01/20 08/01/20 04:33 14:03 17:21 WBC RBC Hgb Hct MCV MCH MCHC RDW Plt Count MPV Immature Gran % (Auto) Neut % (Auto) Lymph % (Auto) Hinds % (Auto) Eos % (Auto) Baso % (Auto) Lymph # (Auto) Hinds # (Auto) Eos # (Auto) Baso # (Auto) Abs Immat Gran (auto) Absolute Neuts (auto) Absolute Nucleated RBC Nucleated RBC % Sodium Potassium Chloride Carbon Dioxide Anion Gap BUN Creatinine Estim Creat Clear Calc Estimated GFR Glucose POC Capillary Glucose 130 H 240 H Calcium Magnesium SARS-CoV-2 RNA (RT-PCR) Negative 08/01/20 08/02/20 08/02/20 20:39 04:18 04:18 WBC 13.9 H RBC 2.43 L Hgb 7.8 L Hct 23.6 L MCV 97.1 MCH 32.1 MCHC 33.1 RDW 12.5 Plt Count 207 MPV 8.5 Immature Gran % (Auto) 0.7 H Neut % (Auto) 83.1 H Lymph % (Auto) 8.0 L Hinds % (Auto) 7.5 Eos % (Auto) 0.6 Baso % (Auto) 0.1 L Lymph # (Auto) 1.12 Hinds # (Auto) 1.1 H Eos # (Auto) 0.1 Baso # (Auto) 0.0 Abs Immat Gran (auto) 0.10 H Absolute Neuts (auto) 11.6 H Absolute Nucleated RBC 0.0 Nucleated RBC % 0.0 Sodium 134 L Potassium 4.5 Chloride 105 Carbon Dioxide 25 Anion Gap 4 L BUN 17 Creatinine 0.70 Estim Creat Clear Calc 59 Estimated GFR > 60 Glucose 252 H POC Capillary Glucose 288 H Calcium 7.6 L Magnesium 1.9 SARS-CoV-2 RNA (RT-PCR) 08/02/20 08:55 WBC RBC Hgb Hct MCV MCH MCHC RDW Plt Count MPV Immature Gran % (Auto) Neut % (Auto) Lymph % (Auto) Hinds % (Auto) Eos % (Auto) Baso % (Auto) Lymph # (Auto) Hinds # (Auto) Eos # (Auto) Baso # (Auto) Abs Immat Gran (auto) Absolute Neuts (auto) Absolute Nucleated RBC Nucleated RBC % Sodium Potassium Chloride Carbon Dioxide Anion Gap BUN Creatinine Estim Creat Clear Calc Estimated GFR Glucose POC Capillary Glucose 113 H Calcium Magnesium SARS-CoV-2 RNA (RT-PCR) Post-procedural complaints: none Patient Feedback: Patient satisfied with anesthetic care.
--- NOTE | 2020-08-02 12:33 | PM.IMPN ---
Progress Note: A&P Assessment and Plan (1) Closed comminuted fracture of left hip: Qualifiers: Encounter type: initial encounter Qualified Code(s): S72.092A - Other fracture of head and neck of left femur, initial encounter for closed fracture Code(s): S72.092A - Other fracture of head and neck of left femur, initial encounter for closed fracture Status: Acute Assessment and Plan: Patient presented with left hip pain after a fall at home. XR demonstrated comminuted intertrochanteric left femur fracture. She is now POD#1 s/p ORIF intertrochanteric fracture with nail by Dr. Llanos 08/01/20. Postoperative wound care, pain control, and DVT prophylaxis per orthopedic surgery recommendations. (2) Diabetes: Qualifiers: Diabetes mellitus complication status: without complication Diabetes mellitus longterm insulin use: without manager terminal use Diabetes mellitus type: type 2 Qualified Code(s): E11.9 - Type 2 diabetes mellitus without complications Code(s): E11.9 - Type 2 diabetes mellitus without complications Status: Chronic Assessment and Plan: Hgb A1c 5.8. Resume metformin. Continue to monitor with Accu-Cheks and adjust treatment as needed. (3) Hypertension: Qualifiers: Hypertension type: essential hypertension Qualified Code(s): I10 - Essential (primary) hypertension Code(s): I10 - Essential (primary) hypertension Status: Chronic Assessment and Plan: BPs stable/on low end of normal. Continue home Norvasc and HCTZ. Continue to monitor BP and adjust treatment as needed. (4) Hyperlipidemia: Qualifiers: Hyperlipidemia type: unspecified Qualified Code(s): E78.5 - Hyperlipidemia, unspecified Code(s): E78.5 - Hyperlipidemia, unspecified Status: Chronic Assessment and Plan: Continue home statin therapy. (5) Hypomagnesemia: Code(s): E83.42 - Hypomagnesemia Status: Acute Assessment and Plan: Magnesium as low as 1.3 and replaced. Improved to 1.9 today. Start oral magnesium oxide and monitor. Subjective Date/time seen: 08/02/20 1100 Interval history: Ms. Marrufo is a pleasant 79yo F admitted for left hip fracture now POD#1 s/p ORIF nail by Dr Llanos. She is pretty uncomfortable this morning having already worked with therapy earlier and sat up in the chair. She denies any chest pain or shortness of breath. She was nauseous this morning secondary to pain trying to get out of the chair with therapy, she said it did not last long and she is no longer nauseous. No vomiting. Review of Systems Review of Systems: All systems reviewed & are unremarkable except as noted in HPI and below Exam Narrative: Exam Narrative: General: Female resting supine in bed in no acute respiratory distress, a bit uncomfortable in pain. HEENT: Normocephalic, EOMI, oral mucosa moist. Cardiovascular: Rate and rhythm are regular. Respiratory: Lungs clear to auscultation anteriorly and laterally. Non-labored breathing. Tolerating room air. Abdomen: Soft, non-tender, non-distended, bowel sounds present. Extremities: Peripheral pulses intact. Left hip dressing is clean, dry, intact. Left lower extremity is neurovascularly intact distal to the surgical site. Neuro: No focal neurological deficits. Speech is clear. Objective Data Vital Signs Vital Signs: Last Vital Signs Temp 97.2 F L 08/02/20 06:00 Pulse 87 08/02/20 08:00 Resp 18 08/02/20 08:00 BP 123/58 L 08/02/20 06:00 Pulse Ox 100 08/02/20 08:00 Intake/Output Intake/Output: Intake & Output 07/30/20 07/31/20 08/01/20 10/10/20 23:59 23:59 23:59 23:59 Intake Total 2130 3090 1640 Output Total 1150 1860 1100 Balance
[2020-08-02 14:00] VITALS: BP 122/57; PULSE 96; RESP 16; TEMP 36.7; O2SAT 95
[2020-08-02] MEDS: ACETAMINOPHEN 500 MG TABLET 1000 MG PO (17:19)
[2020-08-02] MEDS: metFORMIN HCL 500 MG TABLET PO (17:20)
[2020-08-02 19:28] LABS: Glucose Point of Care 159 (65-105)
[2020-08-02 19:28] LABS: Glucose Point of Care 129 (65-105)
[2020-08-02] MEDS: MAGNESIUM OXIDE 200 MG TABLET PO (21:39)
[2020-08-02 21:47] LABS: Glucose Point of Care 129 (65-105)
[2020-08-02 21:56] VITALS: BP 108/55; PULSE 86; RESP 16; TEMP 36.8; O2SAT 97
[2020-08-03] MEDS: ACETAMINOPHEN 500 MG TABLET 1000 MG PO ×2 (03:38→14:20)
[2020-08-03 05:56] LABS: Basophils Percent Auto 0.2 % (0.2-1.2); Eosinophils Absolute Auto 0.4 K/mm3 (0-0.3); Eosinophils Percent Auto 3.4 % (0-4.4); Hematocrit 23.1 % (37.0-47.0); Hemoglobin 7.6 g/dL (12.0-15.0); Immature Granulocyte Absolute 0.09 K/mm3 (0.00-0.031); Immature Granulocyte Percent A 0.7 % (0-0.5); Lymphocytes Absolute Auto 1.36 K/mm3 (0.9-3.2); Mean Corpuscular HGB Conc 32.9 g/dl (32-36); Mean Corpuscular Hemoglobin 32.1 pg (26-34); Mean Corpuscular Volume 97.5 fl (80-100); Mean Platelet Volume 8.7 fl (7.4-10.4); Monocytes Absolute Auto 1.1 K/mm3 (0.1-0.6); Monocytes Percent Auto 8.7 % (2.6-8.5); Neutrophils Absolute Auto 9.4 K/mm3 (1.3-6.7); Platelet Count Result 213 k/mm3 (150-375); Red Blood Count 2.37 M/mm3 (4.2-5.4); Red Cell Distribution Width 12.8 % (11.5-14.5); White Blood Count 12.4 K/mm3 (4.5-10.0)
[2020-08-03 06:00] VITALS: BP 115/53; PULSE 87; RESP 18; TEMP 36.6; O2SAT 99
[2020-08-03 06:06] LABS: Anion Gap 6 mmol/L (8-16); Blood Urea Nitrogen 21 mg/dL (7-17); Calcium 8.1 mg/dL (8.4-10.2); Carbon Dioxide 28 mmol/L (22-30); Chloride 104 mmol/L (98-107); Estimated CRCL calculation 47 ml/min; Estimated Glomerular Filt Rate 60; Glucose 127 mg/dL (65-105); Magnesium 1.9 mg/dL (1.6-2.3); Potassium 4.6 mmol/L (3.4-5.0); Sodium 138 mmol/L (137-145)
[2020-08-03] MEDS: ATORVASTATIN 20 MG TABLET PO (08:11)
[2020-08-03] MEDS: metFORMIN HCL 500 MG TABLET PO ×2 (08:11→17:53)
[2020-08-03] MEDS: ASPIRIN 81 MG ENTERIC TABLET PO (08:11)
[2020-08-03] MEDS: amLODIPine BESYLATE 5 MG TABLET PO (08:11)
[2020-08-03] MEDS: ENOXAPARIN 40 MG/0.4 ML SYRINGE SUB-Q (08:12)
[2020-08-03] MEDS: MAGNESIUM OXIDE 200 MG TABLET PO ×2 (08:12→20:28)
[2020-08-03] MEDS: hydroCHLOROthiazide 12.5 MG CAPSULE PO (08:12)
[2020-08-03] MEDS: DOCUSATE SODIUM 100 MG CAPSULE PO ×2 (08:12→20:28)
[2020-08-03] MEDS: IRBESARTAN 150 MG TABLET PO (08:12)
[2020-08-03] MEDS: PANTOPRAZOLE 40 MG TABLET PO ×2 (08:13→17:53)
--- NOTE | 2020-08-03 09:57 | PM.IMPN ---
Progress Note: A&P Assessment and Plan (1) Closed comminuted fracture of left hip: Qualifiers: Encounter type: initial encounter Qualified Code(s): S72.092A - Other fracture of head and neck of left femur, initial encounter for closed fracture Code(s): S72.092A - Other fracture of head and neck of left femur, initial encounter for closed fracture Status: Acute Assessment and Plan: Patient presented with left hip pain after a fall at home. XR demonstrated comminuted intertrochanteric left femur fracture. She is now POD#2 s/p ORIF intertrochanteric fracture with nail by Dr. Llanos 08/01/20. Postoperative wound care, pain control, and DVT prophylaxis per orthopedic surgery recommendations. (2) Diabetes: Qualifiers: Diabetes mellitus type: type 2 Diabetes mellitus ferry terminal agent insulin use: without ferry terminal agent use Diabetes mellitus complication status: without complication Qualified Code(s): E11.9 - Type 2 diabetes mellitus without complications Code(s): E11.9 - Type 2 diabetes mellitus without complications Status: Chronic Assessment and Plan: Hgb A1c 5.8. Continue metformin. Continue to monitor with Accu-Cheks and adjust treatment as needed. (3) Hypertension: Qualifiers: Hypertension type: essential hypertension Qualified Code(s): I10 - Essential (primary) hypertension Code(s): I10 - Essential (primary) hypertension Status: Chronic Assessment and Plan: BPs stable/on low end of normal. Continue home Norvasc and HCTZ. Continue to monitor BP and adjust treatment as needed. (4) Hyperlipidemia: Qualifiers: Hyperlipidemia type: unspecified Qualified Code(s): E78.5 - Hyperlipidemia, unspecified Code(s): E78.5 - Hyperlipidemia, unspecified Status: Chronic Assessment and Plan: Continue home statin therapy. (5) Hypomagnesemia: Code(s): E83.42 - Hypomagnesemia Status: Acute Assessment and Plan: Magnesium was as low as 1.3 and replaced. Improved to 1.9 today. Continue oral magnesium oxide and monitor. Subjective Date/time seen: 08/03/20 09:15 Interval history: Ms. Marrufo is a pleasant 79yo F admitted for left hip fracture now POD#2 s/p ORIF nail by Dr Llanos. She describes left hip pain worse with getting up out of bed to the chair with therapy, but overall improved from yesterday. At time of my encounter she is sitting up in the bedside chair eating breakfast comfortably. She denies any chest pain, shortness of breath, nausea, or vomiting. No BM since surgery, but she has passed gas. Review of Systems Review of Systems: All systems reviewed & are unremarkable except as noted in HPI and below Exam Narrative: Exam Narrative: General: Female resting comfortably sitting up in bedside chair in no acute distress. HEENT: Normocephalic, EOMI, oral mucosa moist. Cardiovascular: Rate and rhythm are regular. Respiratory: Lungs clear to auscultation in all wilks. Non-labored breathing. Tolerating room air. Abdomen: Soft, non-tender, non-distended, bowel sounds present. Extremities: Peripheral pulses intact. Left hip dressing is clean, dry, intact. Left lower extremity is neurovascularly intact distal to the surgical site. Neuro: No focal neurological deficits. Speech is clear. Objective Data Vital Signs Vital Signs: Last Vital Signs Temp 97.9 F 08/03/20 06:00 Pulse 87 08/03/20 06:00 Resp 18 08/03/20 06:00 BP 115/53 L 08/03/20 06:00 Pulse Ox 99 08/03/20 06:00 Intake/Output Intake/Output: Intake & Output 07/31/20 08/01/20 08/02/2008/03/20 23:59 23:59 23:59 23:59 Intake Total 2130 3090 2320 300 Output Total 1150 1860 1750 1100 Balance
--- NOTE | 2020-08-03 11:03 | PM.PNORT ---
Progress Note: A&P Assessment and Plan (1) Closed comminuted fracture of left hip: Qualifiers: Encounter type: initial encounter Qualified Code(s): S72.092A - Other fracture of head and neck of left femur, initial encounter for closed fracture Code(s): S72.092A - Other fracture of head and neck of left femur, initial encounter for closed fracture Status: Acute Assessment and Plan: Status post op day 2 ORIF left intertrochanteric fracture with long cephalomedullary nail. Patient progressing well. Plan to discharge to rehab facility. Subjective Subjective Date/Time Seen: 08/03/20 11:03 Ephraim Marrufo is a 79-year-old female. She is postop day 2 ORIF left intertrochanteric fracture with long cephalomedullary nail. She is currently not complaining of any pain. No numbness or tingling distally. She has not attempted to walk with walker yet. No nausea or vomiting. No chest pain or shortness of breath.She has been sleeping well at night. Exam Const: General: cooperative, healthy appearing, comfortable, no acute distress, well developed, alert and awake Orientation/consciousness: oriented to person Extrem: General: capillary refill normal, no pedal edema, no calf tenderness and no edema Other: Patient resting comfortably in bed. Incisions healing well. No drainage. Calf nontender. Mild swelling. No ecchymosis. Distal pulses palpable. Normal light touch sensation. Objective Data Vital Signs Vital Signs: Vital Signs - 24 hr 08/02/20 14:00 08/02/20 21:56 08/03/20 06:00 Temperature 98.1 F 98.3 F 97.9 F Pulse Rate 96 86 87 Respiratory Rate 16 16 18 Blood Pressure 122/57 L 108/55 L 115/53 L Pulse Oximetry 95 97 99 Intake/Output Intake/Output: Intake & Output 07/31/20 08/01/20 08/02/20 08/03/20 23:59 23:59 23:59 23:59 Intake Total 2130 3090 2320 420 Output Total 1150 1860 1750 1100 Balance 980 1230 570 -680 Meds/Results Medications: Active Medications Generic Name Dose Route Start Last Admin Trade Name Freq PRN Reason Stop Dose Admin Acetaminophen 1,000 mg 08/02/20 13:43 08/03/20 03:38 Acetaminophen 500 Mg Tablet PO 1,000 mg Q6H PRN Administration Mild Pain (1-3) or Fever Amlodipine Besylate 5 mg 07/31/20 09:00 08/03/20 08:11 Amlodipine Besylate 5 Mg Tablet PO 5 mg DAILY BALA Administration Aspirin 81 mg 07/31/20 09:00 08/03/20 08:11 Aspirin 81 Mg Enteric Tablet PO 81 mg DAILY BALA Administration Atorvastatin Calcium 20 mg 07/31/20 09:00 08/03/20 08:11 Atorvastatin 20 Mg Tablet PO 20 mg DAILY BALA Administration Dextrose 12.5 gm 08/02/20 14:10 Dextrose 50% 25 Gm/50 Ml Syringe IV PUSH PRN PRN Hypoglycemia Protocol Docusate Sodium 100 mg 08/01/20 21:00 08/03/20 08:12 Docusate Sodium 100 Mg Capsule PO 100 mg Q12HR BALA Administration Enoxaparin Sodium 40 mg 08/02/20 09:00 08/03/20 08:12 Enoxaparin 40 Mg/0.4 Ml Syringe SUB-Q 40 mg DAILY BALA Administration Fentanyl Citrate 25 mcg 08/01/20 14:21 08/01/20 15:07 Fentanyl Citrate Inj (*Crx) 100 Mcg/2 Ml Vial IV PUSH 25 mcg Q2M PRN Administration Pain Glucagon 1 mg 08/02/20 14:10 Glucagon For Inj 1 Mg Vial IM PRN PRN Hypoglycemia Protocol Glucose 15 gm 08/02/20 14:10 Glucose Oral Gel 15 Gm Of Glucse In 37.5 Gm Tube PO PRN PRN Hypoglycemia Protocol Hydrochlorothiazide 12.5 mg 07/31/20 09:00 08/03/20 08:12 Hydrochlorothiazide 12.5 Mg Capsule PO 12.5 mg DAILY BALA Administration Lactated Ringer's 1,000 mls @ 30 mls/hr 08/01/20 14:25 08/02/20 17:35 Lr - Lactated Ringers Iv IV CONT Not Given .Q24H BALA Dextrose 1,000 mls @ 100 mls/hr 08/02/20 14:10 Dextrose 5% 1,000 Ml IVPB PRN PRN Hypoglycemia Protocol Insulin Aspart 2 - 5 units 08/03/20 12:00 Insulin Aspart (*Bkc) 100 Units/Ml SUB-Q TIDWM BALA Protocol Irbesartan 150 m
[2020-08-03 12:04] LABS: Glucose Point of Care 118 (65-105)
[2020-08-03 12:04] LABS: Glucose Point of Care 90 (65-105)
[2020-08-03 14:00] VITALS: BP 107/47; PULSE 109; RESP 20; TEMP 36.7; O2SAT 100
[2020-08-03 16:59] LABS: Glucose Point of Care 110 (65-105)
[2020-08-03 21:15] LABS: Glucose Point of Care 116 (65-105)
[2020-08-03 22:00] VITALS: BP 124/53; PULSE 97; RESP 16; TEMP 36.9; O2SAT 96
[2020-08-04] MEDS: ACETAMINOPHEN 500 MG TABLET 1000 MG PO ×2 (01:52→11:55)
[2020-08-04 06:00] VITALS: BP 106/58; PULSE 85; RESP 18; TEMP 36.7; O2SAT 96
[2020-08-04 06:31] LABS: Basophils Absolute Auto 0.1 K/mm3 (0.0-0.1); Basophils Percent Auto 0.3 % (0.2-1.2); Eosinophils Absolute Auto 0.5 K/mm3 (0-0.3); Hematocrit 24.3 % (37.0-47.0); Hemoglobin 7.8 g/dL (12.0-15.0); Immature Granulocyte Absolute 0.13 K/mm3 (0.00-0.031); Immature Granulocyte Percent A 0.8 % (0-0.5); Lymphocytes Absolute Auto 2.42 K/mm3 (0.9-3.2); Lymphocytes Percent Auto 15.2 % (18.3-44.2); Mean Corpuscular HGB Conc 32.1 g/dl (32-36); Mean Corpuscular Hemoglobin 31.8 pg (26-34); Mean Corpuscular Volume 99.2 fl (80-100); Monocytes Absolute Auto 1.1 K/mm3 (0.1-0.6); Neutrophils Absolute Auto 11.7 K/mm3 (1.3-6.7); Neutrophils Percent Auto 73.7 % (45.5-73.1); Platelet Count Result 275 k/mm3 (150-375); Red Blood Count 2.45 M/mm3 (4.2-5.4); Red Cell Distribution Width 12.8 % (11.5-14.5); White Blood Count 15.9 K/mm3 (4.5-10.0)
[2020-08-04] MEDS: ATORVASTATIN 20 MG TABLET PO (08:17)
[2020-08-04] MEDS: metFORMIN HCL 500 MG TABLET PO ×2 (08:17→17:30)
[2020-08-04] MEDS: ASPIRIN 81 MG ENTERIC TABLET PO (08:17)
[2020-08-04] MEDS: DOCUSATE SODIUM 100 MG CAPSULE PO (08:17)
[2020-08-04] MEDS: MAGNESIUM OXIDE 200 MG TABLET PO (08:18)
[2020-08-04] MEDS: ENOXAPARIN 40 MG/0.4 ML SYRINGE SUB-Q (08:18)
[2020-08-04] MEDS: PANTOPRAZOLE 40 MG TABLET PO ×2 (08:18→17:30)
[2020-08-04] MEDS: IRBESARTAN 150 MG TABLET PO (08:18)
[2020-08-04 12:05] LABS: Glucose Point of Care 105 (65-105)
[2020-08-04 12:11] LABS: Glucose Point of Care 103 (65-105)
[2020-08-04 14:00] VITALS: BP 107/52; PULSE 95; RESP 18; TEMP 36.9; O2SAT 97
[2020-08-04 15:27] LABS: Add Urine Microscopic? YES; Appearance Urine Cloudy (Clear); Bacteria Urine Trace /hpf; Bilirubin Urine Negative (Negative); Blood Urine Negative (Negative); Color Urine Yellow (Yellow); Glucose Urine UA Negative (Negative); Ketones Urine Negative (Negative); Leukocyte Esterase Ur 1+ LEU/UL (Negative); Mucus Urine Rare /lpf; Nitrate Urine Negative (Negative); Protein Urine Negative (Negative); RBC Urine 0-2 /hpf (0-2); Renal Epithelial Cells Urine Rare /hpf (None Seen); Specific Grav Ur 1.018 (1.001-1.035); Squamous Epithelial Cell Urine Many /hpf (Few); Urobilinogen Urine Negative mg/dL (<2.0)
--- NOTE | 2020-08-04 16:03 | PM.DS ---
DS: Admitting Diagnosis Admitting Diagnosis Admitting Diagnosis: COMMINUTED LEFT INTERTROCHANTERIC FRACTURE DS: Discharge Diagnosis Discharge Diagnosis (1) Closed comminuted fracture of left hip: Qualifiers: Encounter type: initial encounter Qualified Code(s): S72.092A - Other fracture of head and neck of left femur, initial encounter for closed fracture Code(s): S72.092A - Other fracture of head and neck of left femur, initial encounter for closed fracture Status: Acute Assessment and Plan: Date of Admission 07/30/20 Date of Discharge/ DOS 08/04/20 Ms. Marrufo is a pleasant 79yo F with history of non insulin dependent type 2 diabetes mellitus, hypertension, and hyperlipidemia who presented to the ED for evaluation of left hip pain after a fall at home. XR demonstrated comminuted intertrochanteric left femur fracture. She was evaluated by orthopedic surgery, Dr. Llanos, and underwent ORIF nail 08/01/2020. She tolerated the procedure well and worked with PT / OT postoperatively. She was felt to be a good candidate for continued therapy at inpatient rehab. She was hemodynamically stable for discharge to [facility] on 08/04/2020. Norvasc and HCTZ were held at discharge with blood pressures on the lower end. BP will be monitored in [facility], recommend adding these agents back as blood pressure allows. Patient presented with left hip pain after a fall at home. XR demonstrated comminuted intertrochanteric left femur fracture. s/p ORIF intertrochanteric fracture with nail by Dr. Llanos 08/01/20, discharged on POD#3 Postoperative wound care, pain control, and DVT prophylaxis per orthopedic surgery recommendations. (2) Diabetes: Qualifiers: Diabetes mellitus type: type 2 Diabetes mellitus mcc insulin use: without termite renewal inspector use Diabetes mellitus complication status: without complication Qualified Code(s): E11.9 - Type 2 diabetes mellitus without complications Code(s): E11.9 - Type 2 diabetes mellitus without complications Status: Chronic Assessment and Plan: Hgb A1c 5.8. Continue metformin. (3) Hypertension: Qualifiers: Hypertension type: essential hypertension Qualified Code(s): I10 - Essential (primary) hypertension Code(s): I10 - Essential (primary) hypertension Status: Chronic Assessment and Plan: BPs stable/on low end of normal, day of discharge held Norvasc and HCTZ. Continue to monitor BP and adjust treatment as needed. (4) Hyperlipidemia: Qualifiers: Hyperlipidemia type: unspecified Qualified Code(s): E78.5 - Hyperlipidemia, unspecified Code(s): E78.5 - Hyperlipidemia, unspecified Status: Chronic Assessment and Plan: Continue home statin therapy. (5) Hypomagnesemia: Code(s): E83.42 - Hypomagnesemia Status: Acute Assessment and Plan: Magnesium was as low as 1.3 and replaced. Improved to 1.9 prior to dc. Continue oral magnesium oxide. (6) Leukocytosis: Code(s): D72.829 - Elevated white blood cell count, unspecified Status: Acute Assessment and Plan: Unsure of chronicity. WBC fluctuated perioperatively. WBC 15,900 day of discharge. Patient shows no s/s of infection. UA obtained and does not demonstrate findings of infection, with many squamous cells suggesting contamination. No respiratory symptoms. WBC can be monitored after discharge. DS: Summary Time Spent with Patient Time attestation: Total time spent providing and/or coordinating discharge services: 35 minutes Exam Narrative: Exam Narrative: General: Female resting comfortably sitting up in beds
--- NOTE | 2020-08-04 16:48 | PM.PNORT ---
Progress Note: A&P Assessment and Plan (1) Closed comminuted fracture of left hip: Qualifiers: Encounter type: initial encounter Qualified Code(s): S72.092A - Other fracture of head and neck of left femur, initial encounter for closed fracture Code(s): S72.092A - Other fracture of head and neck of left femur, initial encounter for closed fracture Status: Acute Assessment and Plan: Progressing well after nailing of the left femur. Mobilizing with physical therapy. May be discharged to rehab. Subjective Subjective Date/Time Seen: 08/04/20 16:48 Interval history: Pain well controlled. Mobilizing well with physical therapy. Exam Narrative: Exam Narrative: Wound healing well. No drainage. Thigh soft. No hematoma. Distal neurologic status intact. Objective Data Vital Signs Vital Signs: Vital Signs - 24 hr 08/03/20 22:00 08/04/20 06:00 08/04/20 14:00 Temperature 36.9 C 36.7 C 36.9 C Pulse Rate 97 85 95 Respiratory Rate 16 18 18 Blood Pressure 124/53 L 106/58 L 107/52 L Pulse Oximetry 96 96 97 Intake/Output Intake/Output: Intake & Output 08/01/20 08/02/20 08/03/20 08/04/20 23:59 23:59 23:59 23:59 Intake Total 3090 2320 1170 980 Output Total 1860 1750 1800 700 Balance 1230 570 -630 280 Meds/Results Medications: Active Medications Generic Name Dose Route Start Last Admin Trade Name Freq PRN Reason Stop Dose Admin Acetaminophen 1,000 mg 08/02/20 13:43 08/04/20 11:55 Acetaminophen 500 Mg Tablet PO 1,000 mg Q6H PRN Administration Mild Pain (1-3) or Fever Amlodipine Besylate 5 mg 07/31/20 09:00 08/03/20 08:11 Amlodipine Besylate 5 Mg Tablet PO 5 mg DAILY BALA Administration Aspirin 81 mg 07/31/20 09:00 08/04/20 08:17 Aspirin 81 Mg Enteric Tablet PO 81 mg DAILY BALA Administration Atorvastatin Calcium 20 mg 07/31/20 09:00 08/04/20 08:17 Atorvastatin 20 Mg Tablet PO 20 mg DAILY BALA Administration Dextrose 12.5 gm 08/02/20 14:10 Dextrose 50% 25 Gm/50 Ml Syringe IV PUSH PRN PRN Hypoglycemia Protocol Docusate Sodium 100 mg 08/01/20 21:00 08/04/20 08:17 Docusate Sodium 100 Mg Capsule PO 100 mg Q12HR BALA Administration Enoxaparin Sodium 40 mg 08/02/20 09:00 08/04/20 08:18 Enoxaparin 40 Mg/0.4 Ml Syringe SUB-Q 40 mg DAILY BALA Administration Fentanyl Citrate 25 mcg 08/01/20 14:21 08/01/20 15:07 Fentanyl Citrate Inj (*Crx) 100 Mcg/2 Ml Vial IV PUSH 25 mcg Q2M PRN Administration Pain Glucagon 1 mg 08/02/20 14:10 Glucagon For Inj 1 Mg Vial IM PRN PRN Hypoglycemia Protocol Glucose 15 gm 08/02/20 14:10 Glucose Oral Gel 15 Gm Of Glucse In 37.5 Gm Tube PO PRN PRN Hypoglycemia Protocol Hydrochlorothiazide 12.5 mg 07/31/20 09:00 08/03/20 08:12 Hydrochlorothiazide 12.5 Mg Capsule PO 12.5 mg DAILY BALA Administration Lactated Ringer's 1,000 mls @ 30 mls/hr 08/01/20 14:25 08/03/20 20:28 Lr - Lactated Ringers Iv IV CONT Not Given .Q24H BALA Dextrose 1,000 mls @ 100 mls/hr 08/02/20 14:10 Dextrose 5% 1,000 Ml IVPB PRN PRN Hypoglycemia Protocol Insulin Aspart 2 - 5 units 08/03/20 12:00 08/04/20 11:59 Insulin Aspart (*Bkc) 100 Units/Ml SUB-Q Not Given TIDWM BALA Protocol Irbesartan 150 mg 07/31/20 09:00 08/04/20 08:18 Irbesartan 150 Mg Tablet PO 150 mg DAILY BALA Administration Magnesium Hydroxide 30 ml 08/01/20 15:25 Magnesium Hydroxide Susp 30 Ml Udc PO BID PRN Constipation Magnesium Oxide 200 mg 08/02/20 21:00 08/04/20 08:18 Magnesium Oxide 200 Mg Tablet PO 200 mg Q12HR BALA Administration Metformin HCl 500 mg 08/02/20 17:00 08/04/20 08:17 Metformin Hcl 500 Mg Tablet PO 500 mg BIDWM BALA Administration Morphine Sulfate 2 mg 07/30/20 17:34 08/02/20 09:01 Morphine Sulfate (*Crx) 2 Mg/Ml Inj IV PUSH 2 mg Q4H PRN
[2020-08-04 17:41] LABS: Glucose Point of Care 97 (65-105)
--- NOTE | 2020-08-04 18:26 | PC.NURSE ---
1800 dressing change to left hip completed
== END 2020-08-04 18:00 | DRG 481 ==
LOC: ANHED 16:54 → ANH3MEDSUR 17:55
PROVIDERS: Family Medicine; Orthopaedic Surgery; Physician Assistant; Admitting Provider Internal Medicine; Emergency Provider General Practice; PCP Internal Medicine; Visit Provider Physician Assistant
PROC: 0QS736Z Reposition Left Upper Femur with Intramedullary Internal Fixation Device, Percutaneous Approach (ICD-10-PCS; CPT 27245; principal; 2020-08-01 11:30)
DX: S72.142A Displaced intertrochanteric fracture of left femur, initial encounter for closed fracture (principal); N17.9 Acute kidney failure, unspecified; D62 Acute posthemorrhagic anemia; W19.XXXA Unspecified fall, initial encounter; Z20.828 Contact with and (suspected) exposure to other viral communicable diseases; E11.42 Type 2 diabetes mellitus with diabetic polyneuropathy; E78.5 Hyperlipidemia, unspecified; I10 Essential (primary) hypertension; E83.42 Hypomagnesemia; Z96.612 Presence of left artificial shoulder joint; Z85.820 Personal history of malignant melanoma of skin; Z90.49 Acquired absence of other specified parts of digestive tract; Z87.891 Personal history of nicotine dependence; Z98.42 Cataract extraction status, left eye; Z98.41 Cataract extraction status, right eye
CPT/HCPCS: 36415; 51702; 70450; 73502; 80048; 80053; 81001; 83036; 83735; 85025; 85610; 85730; 86850; 86900; 86901; 87077; 87086; 87088; 87186; 87635; 93005; 96374; 97110; 97116; 97162; 97165; 97535; 99285; A9270; C1713; C1769; C9803; J0690; J1100; J1650; J2270; J2370; J2405; J2704; J3010; J3475; J3480; J7030; J7120; U0003

== ENCOUNTER 2020-08-04 18:15 | IRF | payer MEDICARE, SELFPAY ==
--- NOTE | ~2020-08-04 | XR_ITS ---
EXAMINATION: XR femur LT min 2V EXAM DATE: 08/15/2020 17:19 INDICATION: 2 week post op ORIF left long gamma nail . TECHNIQUE: Left femur frontal and lateral projections of the proximal aspect, frontal and lateral pro jections of the lower aspect for review. Correlation is made to left hip 07/30/2020. FINDINGS: There is a femoral yonatan and gamma nail bridging the comminuted intertrochanteric fracture. Hardware is in expected position. No hip dislocation. Mild hip and knee osteoarthritis. IMPRESSION: ORIF left hip comminuted intertrochanteric fracture in expected position. Reviewed, dictated and finalized at location A. IMPRESSION: ORIF left hip comminuted intertrochanteric fracture in expected po sition.
[2020-08-04 18:10] VITALS: BMI 26.4
--- NOTE | 2020-08-04 18:37 | ADMGEN ---
Arrived via bed from [address] [place] [address] at 1810. This patient, Ephraim Marrufo, was admitted to [facility] Room 225-02. Patient/family oriented to hospital policies and general routines including ID bracelet, bed and alarms, visiting hours, pain management, procedures, bathroom and other care routines, personal items, smoking policy, room service/diet, and visiting hours. Valuables list has been completed. Information on how to activate the Rapid Response Team has been discussed. Patient/Family are encouraged to report perceived risks to care and to ask questions if they do not understand what they are told or what they should do.
[2020-08-04 18:41] VITALS: BP 130/57; PULSE 92; RESP 18; TEMP 37.1; O2SAT 97
[2020-08-04 18:48] VITALS: BMI 26.4
--- NOTE | 2020-08-04 18:54 | PC.NURSE ---
This patient, Ephraim Marrufo, was admitted to [facility] Room 225-02. Patient/family oriented to hospital policies and general routines including ID bracelet, bed and alarms, visiting hours, pain management, procedures, bathroom and other care routines, personal items, smoking policy, room service/diet, and visiting hours. Valuables list has been completed. Information on how to activate the Rapid Response Team has been discussed. Patient/Family are encouraged to report perceived risks to care and to ask questions if they do not understand what they are told or what they should do.
[2020-08-04] MEDS: ACETAMINOPHEN 500 MG TABLET 1000 MG PO (20:43)
[2020-08-04 22:00] VITALS: BP 123/50; PULSE 102; RESP 19; TEMP 36.9; O2SAT 98
[2020-08-05 05:08] LABS: Basophils Percent Auto 0.3 % (0.2-1.2); Eosinophils Absolute Auto 0.5 K/mm3 (0-0.3); Eosinophils Percent Auto 3.8 % (0-4.4); Hematocrit 22.8 % (37.0-47.0); Hemoglobin 7.6 g/dL (12.0-15.0); Immature Granulocyte Absolute 0.09 K/mm3 (0.00-0.031); Immature Granulocyte Percent A 0.8 % (0-0.5); Lymphocytes Absolute Auto 1.53 K/mm3 (0.9-3.2); Lymphocytes Percent Auto 12.8 % (18.3-44.2); Mean Corpuscular HGB Conc 33.3 g/dl (32-36); Mean Corpuscular Hemoglobin 32.6 pg (26-34); Mean Corpuscular Volume 97.9 fl (80-100); Mean Platelet Volume 8.7 fl (7.4-10.4); Monocytes Absolute Auto 0.9 K/mm3 (0.1-0.6); Monocytes Percent Auto 7.1 % (2.6-8.5); Neutrophils Percent Auto 75.2 % (45.5-73.1); Platelet Count Result 252 k/mm3 (150-375); Red Blood Count 2.33 M/mm3 (4.2-5.4); Red Cell Distribution Width 12.7 % (11.5-14.5)
[2020-08-05 05:35] LABS: Anion Gap 5 mmol/L (8-16); Blood Urea Nitrogen 33 mg/dL (7-17); Calcium 8.4 mg/dL (8.4-10.2); Carbon Dioxide 27 mmol/L (22-30); Chloride 104 mmol/L (98-107); Estimated CRCL calculation 27 ml/min; Estimated Glomerular Filt Rate 39; Glucose 105 mg/dL (65-105); Potassium 3.8 mmol/L (3.4-5.0); Sodium 136 mmol/L (137-145)
[2020-08-05 06:00] VITALS: BP 112/54; PULSE 87; RESP 18; TEMP 36.4; O2SAT 100
[2020-08-05 06:12] LABS: Glucose Point of Care 96 (65-105)
[2020-08-05 06:32] LABS: Hemoglobin A1C 5.9 % (<5.7)
[2020-08-05] MEDS: IRBESARTAN 150 MG TABLET PO (08:25)
[2020-08-05] MEDS: ENOXAPARIN 40 MG/0.4 ML SYRINGE SUB-Q (08:26)
[2020-08-05] MEDS: metFORMIN HCL 500 MG TABLET PO ×2 (08:26→18:23)
[2020-08-05] MEDS: ATORVASTATIN 20 MG TABLET PO (08:26)
[2020-08-05] MEDS: ASPIRIN 81 MG ENTERIC TABLET PO (08:26)
[2020-08-05] MEDS: PANTOPRAZOLE 40 MG TABLET PO ×2 (08:26→18:24)
[2020-08-05] MEDS: ACETAMINOPHEN 500 MG TABLET 1000 MG PO ×2 (08:35→18:24)
--- NOTE | 2020-08-05 11:00 | PM.IMHP ---
H&P: HPI History of Present Illness Date/Time: 08/05/20 14:04 Chief complaint: Left hip fracture/surgery Narrative: Ephraim Marrufo is a 79 year old female The primary rehab impairment category is orthopedic/lower extremity fracture The etiologic diagnosis is comminuted and displaced intertrochanteric fracture of the left hip. The patient was seen [id number] at 11:00 a.m. on August 05, 2020 H and P The patient is an 79-year-old woman with a past medical history of type 2 diabetes mellitus with diabetic peripheral neuropathy, hypertension and hyperlipidemia who presented to [facility] Emergency Department on July 30, 2020 after having a fall at home. . The patient lives at [facility] at [facility] with her . She reported that she had been cross the shopping and return home to put away her groceries prior to her fall. She had turned around in her kitchen and was rushing across the floor when she somehow triplet tripped and fell. It fell to her as if she was ever bone she landed on her left hip. The patient also confirms that she hit her head on the central supply aide but denies any headache or loss of consciousness. She reported instant severe pain in left hip and was unable to get up. EMS was kind contacted and she was transported understand emergency department. She has never had a prior fracture and that she is relatively active. He she recently had a parathyroidectomy in June following appointment with few days ago. Patient also takes daily aspirin but denies any additional blood thinner usage. Head CT showed no acute intracranial findings or abnormalities only age-related findings. Hip and pelvic x-rays revealed the comminuted intertrochanteric fracture of the left femur. Orthopedic surgery was consulted and surgical intervention was recommended due to significant deformity. The patient underwent left ORIF with cephalad medullary nailing by on August 01, 2020. The patient is weight-bearing as tolerated to the left lower extremity. Postoperative complication of included significant hypotension acute blood-loss anemia postoperative pain leukocytosis acute kidney injury hyperglycemia and hyponatremia hypocalcemia and hypomagnesemia. The patient's H and H is trending down postoperatively. The fusion suspect the patient is experiencing acute surgical blood-loss anemia superimposed on chronic anemia given that her H&H was lobe preoperatively. She is asymptomatic and the plan is to closely monitor CBC during her rehab stay and transfuse if medically indicated. The patient's hemoglobin A1c is 5.8. Patient blood pressure is stable however it is on the low end of the normal. The plan was to continue home Norvasc and hydrochlorothiazide with continued monitoring and adjustment of the treatment as needed. Patient is awake alert x3 she will be discharged to [facility] on aspirin and Lovenox for DVT prophylaxis The therapy was initiated the acute care side of the hospital the patient transferred to us on August 02, 2020 The patient has had major surgery in the last 10 days. The patient has had falls in the past year. Patient has had falls with injury in the past year. Next Past medical history, type 2 diabetes mellitus, hyperlipidemia, hypertension, closed head injury, closed comminuted fracture of the left hip, actinic keratosis, skin cancer screening with malignant melanoma, hyperparathyroidism status post parathyroidectomy in June 2020, diabetic peripheral neuropathy bilateral feet. Past surgical history ankle surgery, cholecystectomy, parathyroidectomy as mentioned above, malignant melanoma removed left arm, left shoulder arthropathy, bilateral cataract extraction. Social history, the patient lives at [facility] independent living with her who is suffering from dementia. She has 2 adult daughters were relatively healthy. She has had her have been the since 1955. The heather
[2020-08-05 12:01] LABS: Glucose Point of Care 105 (65-105)
[2020-08-05 13:11] VITALS: BMI 26.4
[2020-08-05 14:00] VITALS: BP 126/57; PULSE 82; RESP 18; TEMP 36.2; O2SAT 98
--- NOTE | 2020-08-05 14:12 | PCNSR ---
On 08/05/20, the student, Kaylin Cuellar, provided care and completed [facility] documentation on this patient. I have reviewed the student's documentation and agree with the findings.
[2020-08-05 17:14] LABS: Glucose Point of Care 117 (65-105)
[2020-08-05 22:00] VITALS: BP 126/56; PULSE 93; RESP 20; TEMP 36.9; O2SAT 100
[2020-08-06 06:00] VITALS: BP 124/53; PULSE 94; RESP 18; TEMP 36.5; O2SAT 97
[2020-08-06 06:44] LABS: Glucose Point of Care 92 (65-105)
[2020-08-06] MEDS: ATORVASTATIN 20 MG TABLET PO (09:03)
[2020-08-06] MEDS: metFORMIN HCL 500 MG TABLET PO ×2 (09:04→16:45)
[2020-08-06] MEDS: PANTOPRAZOLE 40 MG TABLET PO ×2 (09:04→16:45)
[2020-08-06] MEDS: ASPIRIN 81 MG ENTERIC TABLET PO (09:04)
[2020-08-06] MEDS: ENOXAPARIN 40 MG/0.4 ML SYRINGE SUB-Q (09:04)
[2020-08-06] MEDS: ACETAMINOPHEN 500 MG TABLET 1000 MG PO ×2 (09:04→20:49)
[2020-08-06] MEDS: IRBESARTAN 150 MG TABLET PO (09:04)
[2020-08-06] MEDS: HYDROCORTISONE 1% 30 GM CREAM 1 APPLIC TOPICAL ×2 (09:30→20:47)
[2020-08-06 13:30] VITALS: BP 87/55; O2SAT 100
[2020-08-06 14:00] VITALS: BP 98/44; PULSE 97; RESP 18; TEMP 36.6; O2SAT 99
--- NOTE | 2020-08-06 14:23 | RPD ---
INDIVIDUALIZED PLAN OF CARE FOR Ephraim Marrufo Brief Synthesis of Pre-Admission Screen, Post-Admission Evaluation and Therapy Evaluations: The patient presents to rehab with a comminuted and displaced intertrochanteric fracture of the left hip. Comorbidities include status post open reduction and internal fixation of comminuted left intertrochanteric hip fracture, type 2 diabetes mellitus, diabetic peripheral neuropathy of bilateral feet, hyperlipidemia, hypertension, actinic keratosis, history of hyperparathyroidism s/p parathyroidectomy 06/2020, and acute kidney injury.The complexity of the patient's medical management, nursing, and therapy needs require an inpatient rehab hospital stay with a physician-led interdisciplinary team approach. The patient?s needs will be best met in an intensive program vs. at a lower level of care. The patient requires physician services for medical oversight, management of postop complications in setting of present comorbidities, and pain management. She will be followed at least three times a week by the rehabilitation physician. The patient requires nursing services for DVT prophylactics, infection protection, medication management and education, pressure relief, and wound care. Deficits include:ADLs, Balance, Endurance, Family Training/Education, Mobility, Pain Management, ROM, Safety, Strength, and Transfers Degree Clerk/Case Management for: Discharge Planning and Patient/Family Counseling Physical Therapy: 5 days per week for 90 minutes. Treatments may include: Therapeutic Exercise, Gait Training, Neuromuscular Re-education, Transfer Training, Community Reintegration, Bed Mobility, Patient/Family Education, Wheelchair Mobility Group Therapy/Concurrent Therapy Rationales: -Improve attention span during functional activities in a distracted environment. -Enhance problem solving and/or adequate judgment skills during functional activities in a distracted environment. -Promote increased safety awareness in a distracted environment to reduce fall risk with functional tasks, transfers, and ambulation to allow a more safe, self-sufficient return to the home environment. -Improve dynamic balance skills to promote safety and independence with functional activities in a distracted environment for maximum gain. Occupational Therapy: 5 days per week for 90 minutes. Treatments may include: Therapeutic Exercise, Therapeutic Activity, Cognitive Training, Self-Care Transfer Training, Community Reintegration, Home Management, Patient/Family Education, Wheelchair Mobility Training, Energy Conservation Training Group Therapy/Concurrent Therapy Rationales: -Allow therapist to observe and teach generalization and carry-over of skills learned in individual therapy. -Enhance problem solving and sequencing skills during therapeutic activities in a distracted environment. -Promote increased safety awareness in a realistic setting to reduce fall risk with functional tasks due to visual and verbal distractions. -Increase functional level with ADLs, ADL transfers and use of adaptive equipment through therapeutic activities with others while promoting safety to allow a more safe, self-sufficient return home. Medical Prognosis: Good Anticipated Length of Stay: 10 days Rehab Goals: Eating Goal: 06-Independent Oral Hygiene Goal: 06-Independent Toileting Hygiene Goal: 06-Independent Shower/Bathe Self Goal: 05-Setup or Clean Up Assistance Upper Body Dressing Goal: 06-Independent Lower Body Dressing Goal: 06-Independent Putting On/Taking Off Footwear Goal: 06-Independent Rolling Left and Right Goal: 06-Independent Sit to Lying Goal: 06-Independent Lying to Sitting on Side of Bed Goal: 06-Independent Sit to Stand Goal: 06-Independent Chair/Evn-tg-Nhlod Transfer Goal: 06-Independent Toilet Transfer Goal: 06-Independent Car Transfer Goal: 06-Independent Walk 10' Goal: 06-Independent Walk 50' with Two Turns Goal: 06-Independent Walk 150' Goal: 04-Petersen
--- NOTE | 2020-08-06 15:19 | WPDNEURORHBP ---
Subjective Date/time seen: 08/06/20 15:19 Interval history: this 79-year-old woman is here after having had surgery for the left hip fracture she is doing very well in the rehab unit she denies any headache nausea vomiting chest pain shortness of breath fever chills sore throat the urine does show evidence of the urinary tract infection for which I am going to start her on antibiotic Review of Systems Review of Systems: All systems reviewed & are unremarkable except as noted in HPI and below Functional Status Ambulation Ability Ability to Ambulate 10 Feet: Contact Guard Ambulation Assistive Devices: Walker, Wheeled Transfers Ability Ability to Transfer In/Out of Chair: Minimum Assistance X 1 Exam Narrative: Exam Narrative: patient is awake alert well oriented follows all commands speech and language functions are normal cranial exam shows normal there is no motor deficit except the weakness related to the surgery she has had on the left hip reflexes of 1+ Babinski sign is negative Head is normocephalic neck is supple eyes are no 3rd lungs are clear cardiovascular examination negative extremities reveal no deformity Objective Data Vital Signs Vital Signs: Vital Signs - 24 hr 08/05/20 22:00 08/06/20 06:00 08/06/20 13:30 Temperature 36.9 C 36.5 C Pulse Rate 93 94 Respiratory Rate 20 18 Blood Pressure 126/56 L 124/53 L 87/55 L Pulse Oximetry 100 97 100 08/06/20 14:00 Temperature 36.6 C Pulse Rate 97 Respiratory Rate 18 Blood Pressure 98/44 L Pulse Oximetry 99 Intake/Output Intake/Output: Intake & Output 08/03/20 08/04/20 08/05/20 08/06/20 23:59 23:59 23:59 23:59 Intake Total 720 480 Balance 720 480 Meds/Results Medications: Active Medications Generic Name Dose Route Start Last Admin Trade Name Freq PRN Reason Stop Dose Admin Acetaminophen 1,000 mg 08/04/20 19:30 08/06/20 09:04 Acetaminophen 500 Mg Tablet PO 1,000 mg Q6H PRN Administration Mild Pain (1-3) Or Fever Aspirin 81 mg 08/05/20 09:00 08/06/20 09:04 Aspirin 81 Mg Enteric Tablet PO 81 mg DAILY BALA Administration Atorvastatin Calcium 20 mg 08/05/20 09:00 08/06/20 09:03 Atorvastatin 20 Mg Tablet PO 20 mg DAILY BALA Administration Diclofenac/Misoprostol 1 tab 10/13/20 09:00 08/06/20 09:04 Diclofenac/Misoprostol 75/200 Tablet.Ec PO 1 tab BID BAAL Administration Enoxaparin Sodium 40 mg 08/05/20 09:00 08/06/20 09:04 Enoxaparin 40 Mg/0.4 Ml Syringe SUB-Q 09/01/20 09:01 40 mg DAILY BALA Administration Hydrocortisone 1 applic 08/06/20 09:15 08/06/20 09:30 Hydrocortisone 1% 30 Gm Cream TOPICAL 1 applic Q12HR BALA Administration Irbesartan 150 mg 08/05/20 09:00 08/06/20 09:04 Irbesartan 150 Mg Tablet PO 150 mg DAILY BALA Administration Levofloxacin 250 mg 08/07/20 09:00 Levofloxacin Tab 250 Mg Tablet PO 08/10/20 09:01 DAILY BALA Magnesium Hydroxide 30 ml 08/04/20 19:30 Magnesium Hydroxide Susp 30 Ml Udc PO BID PRN Constipation Metformin HCl 500 mg 08/05/20 08:00 08/06/20 09:04 Metformin Hcl 500 Mg Tablet PO 500 mg BIDWM BALA Administration Pantoprazole Sodium 40 mg 08/05/20 09:00 08/06/20 09:04 Pantoprazole 40 Mg Tablet PO 40 mg BID BALA Administration Tramadol HCl 50 mg 08/04/20 19:30 Tramadol Hcl (*Crx) 50 Mg Tablet PO Q6H PRN Pain rated 4-6 Labs Labs: Laboratory Results - last 24 hr 08/05/20 08/06/20 17:12 06:21 POC Capillary Glucose 117 H 92 Progress Note: A&P Assessment and Plan (1) UTI (urinary tract infection): Code(s): N39.0 - Urinary tract infection, site not specified Status: Acute (2) S/P ORIF (open reduction internal fixation) fracture: Code(s): Z98.890 - Other specified postprocedural states; Z87.81 - Personal history of (healed) traumatic fracture Status: Acute (3) FABRIZIO (acute kidney injury): Code(s): N17.9 - Acute kidney huber
[2020-08-06 16:30] VITALS: BP 108/58
[2020-08-06 16:36] LABS: Glucose Point of Care 99 (65-105)
[2020-08-06 20:06] VITALS: BP 118/45; PULSE 91; RESP 18; TEMP 36.6; O2SAT 100
[2020-08-07 04:56] VITALS: BP 120/64; PULSE 93; RESP 20; TEMP 36.8; O2SAT 99
[2020-08-07 07:17] LABS: Glucose Point of Care 89 (65-105)
[2020-08-07] MEDS: ASPIRIN 81 MG ENTERIC TABLET PO (08:31)
[2020-08-07] MEDS: IRBESARTAN 150 MG TABLET PO (08:31)
[2020-08-07] MEDS: ATORVASTATIN 20 MG TABLET PO (08:31)
[2020-08-07] MEDS: ENOXAPARIN 40 MG/0.4 ML SYRINGE SUB-Q (08:31)
[2020-08-07] MEDS: metFORMIN HCL 500 MG TABLET PO ×2 (08:31→17:27)
[2020-08-07] MEDS: PANTOPRAZOLE 40 MG TABLET PO ×2 (08:32→17:27)
[2020-08-07] MEDS: HYDROCORTISONE 1% 30 GM CREAM 1 APPLIC TOPICAL ×2 (08:32→20:54)
[2020-08-07 14:00] VITALS: BP 108/50; PULSE 98; RESP 18; TEMP 36.3; O2SAT 100
[2020-08-07 17:43] LABS: Glucose Point of Care 103 (65-105)
[2020-08-07 20:24] VITALS: BP 119/48; PULSE 99; RESP 18; TEMP 36.3; O2SAT 97
[2020-08-07] MEDS: ACETAMINOPHEN 500 MG TABLET 1000 MG PO (20:54)
[2020-08-08 05:36] VITALS: BP 116/69; PULSE 100; RESP 18; TEMP 36; O2SAT 97
[2020-08-08 06:33] LABS: Glucose Point of Care 87 (65-105)
[2020-08-08] MEDS: metFORMIN HCL 500 MG TABLET PO ×2 (09:14→18:13)
[2020-08-08] MEDS: ASPIRIN 81 MG ENTERIC TABLET PO (09:14)
[2020-08-08] MEDS: ATORVASTATIN 20 MG TABLET PO (09:14)
[2020-08-08] MEDS: PANTOPRAZOLE 40 MG TABLET PO ×2 (09:15→18:14)
[2020-08-08] MEDS: ENOXAPARIN 40 MG/0.4 ML SYRINGE SUB-Q (09:15)
[2020-08-08] MEDS: HYDROCORTISONE 1% 30 GM CREAM 1 APPLIC TOPICAL ×2 (09:15→20:36)
[2020-08-08] MEDS: IRBESARTAN 150 MG TABLET PO (09:15)
--- NOTE | 2020-08-08 13:06 | PCDIET ---
Nutrition Follow-Up Complete: Nutrition Diagnosis: Predicted suboptimal nutrient intake related to unpredictable fluctuation in appetite, as evidenced by pt interview and intake records. Nutrition Goal: Pt will consume 90% of all meals. Goal met. Patient consuming 75-100% of most meals on diabetic diet. Patient states not having tried Glucerna Shake yet, but she plans to try it today. No new recommendations at this time, other than to obtain new weight. Last recorded weight is 72.2 kg. Bowel Motility: Last documented BM on 08/06/20. Labs Reviewed: Glu (87) Meds Noted: Levaquin, Glucophage, Protonix Additional Notes: Dressings to left hip and left knee. No documented pressure ulcers. Will continue to monitor with same goal. Nutrition Monitoring and Evaluation: Follow up in 5 days.
[2020-08-08 14:00] VITALS: BP 113/56; PULSE 98; RESP 16; TEMP 36.8; O2SAT 100
--- NOTE | 2020-08-08 14:44 | WPDNEURORHBP ---
Subjective Date/time seen: 08/08/20 14:44 Interval history: this 79-year-old very cooperative pleasant woman is here after having had surgery for the left hip for fracture she is complaining some low back pain which she has had in the past and we will use the lidocaine patch otherwise she is moving forward in the therapy doing fairly well denies any headache nausea vomiting chest pain shortness of breath fever chills sore throat Review of Systems Review of Systems: All systems reviewed & are unremarkable except as noted in HPI and below Functional Status Ambulation Ability Ability to Ambulate 10 Feet: Standby Assistance Ambulation Assistive Devices: Walker, Wheeled Transfers Ability Ability to Transfer In/Out of Chair: Contact Guard Exam Narrative: Exam Narrative: patient is awake alert well oriented time place and person improving in the physical therapy next Patient overall general physical examination call decent is unremarkable likewise his ability to moving the therapy is quite good making progress improving overall Objective Data Vital Signs Vital Signs: Vital Signs - 24 hr 08/07/20 20:24 08/08/20 05:36 Temperature 36.3 C L 36.0 C L Pulse Rate 99 100 Respiratory Rate 18 18 Blood Pressure 119/48 L 116/69 Pulse Oximetry 97 97 Intake/Output Intake/Output: Intake & Output 08/05/20 08/06/20 08/07/20 08/08/20 23:59 23:59 23:59 23:59 Intake Total 275 318 7337 240 Balance 912 571 3253 240 Meds/Results Medications: Active Medications Generic Name Dose Route Start Last Admin Trade Name Freq PRN Reason Stop Dose Admin Acetaminophen 1,000 mg 08/04/20 19:30 08/07/20 20:54 Acetaminophen 500 Mg Tablet PO 1,000 mg Q6H PRN Administration Mild Pain (1-3) Or Fever Aspirin 81 mg 08/05/20 09:00 08/08/20 09:14 Aspirin 81 Mg Enteric Tablet PO 81 mg DAILY BALA Administration Atorvastatin Calcium 20 mg 08/05/20 09:00 08/08/20 09:14 Atorvastatin 20 Mg Tablet PO 20 mg DAILY BALA Administration Diclofenac/Misoprostol 1 tab 08/05/20 09:00 08/08/20 09:14 Diclofenac/Misoprostol 75/200 Tablet.Ec PO 1 tab BID BALA Administration Enoxaparin Sodium 40 mg 08/05/20 09:00 08/08/20 09:15 Enoxaparin 40 Mg/0.4 Ml Syringe SUB-Q 09/01/20 09:01 40 mg DAILY BALA Administration Hydrocortisone 1 applic 08/06/20 09:15 08/08/20 09:15 Hydrocortisone 1% 30 Gm Cream TOPICAL 1 applic Q12HR BALA Administration Irbesartan 150 mg 08/05/20 09:00 08/08/20 09:15 Irbesartan 150 Mg Tablet PO 150 mg DAILY BALA Administration Levofloxacin 250 mg 08/07/20 09:00 08/08/20 09:14 Levofloxacin Tab 250 Mg Tablet PO 08/10/20 09:01 250 mg DAILY BALA Administration Magnesium Hydroxide 30 ml 08/04/20 19:30 Magnesium Hydroxide Susp 30 Ml Udc PO BID PRN Constipation Metformin HCl 500 mg 08/05/20 08:00 08/08/20 09:14 Metformin Hcl 500 Mg Tablet PO 500 mg BIDWM BALA Administration Pantoprazole Sodium 40 mg 08/05/20 09:00 08/08/20 09:15 Pantoprazole 40 Mg Tablet PO 40 mg BID BALA Administration Tramadol HCl 50 mg 08/04/20 19:30 Tramadol Hcl (*Crx) 50 Mg Tablet PO Q6H PRN Pain rated 4-6 Labs Labs: Laboratory Results - last 24 hr 08/07/20 08/08/20 17:26 06:30 POC Capillary Glucose 103 87 Progress Note: A&P Assessment and Plan (1) UTI (urinary tract infection): Code(s): N39.0 - Urinary tract infection, site not specified Status: Acute (2) S/P ORIF (open reduction internal fixation) fracture: Code(s): Z98.890 - Other specified postprocedural states; Z87.81 - Personal history of (healed) traumatic fracture Status: Acute (3) Diabetes: Qualifiers: Diabetes mellitus type: type 2 Diabetes mellitus bed bug exterminator insulin use: without usp use Diabetes mellitus complication status: without complication Qualified Code(s): E11.9 - Type 2 diabetes mellitus without complicati
--- NOTE | 2020-08-08 14:51 | PCPTNOTE ---
Edwige Caruso PTA completed an inpatient rehab wheelchair evaluation on Ephraim Marrufo on 08/08/2020. The patient is unable to safely and independently ambulate household distances due to their current impairments. Their diagnosis is Left hip fracture/surgery and their impairments include decreased strength, decreased endurance, decreased range of motion, decreased balance, lower extremity weakness. Ephraim's weight bearing status is weight-bearing as tolerated on the Left lower leg. The patient demonstrates significant functional mobility limitations that impair their ability to participate in mobility-related activities of daily living (MRADLs), including toileting, feeding, dressing, grooming, and bathing in the customary locations in the home. These limitations cannot be sufficiently resolved by the use of an appropriately fitted cane or walker. It is recommended that the patient utilize a wheelchair for functional mobility within the home in order to facilitate optimal safety, independence and participation in all MRADL's and adequately access their home environment on a regular basis. The patient's home provides adequate access between rooms, maneuvering space, and surfaces to accommodate the recommended wheelchair. The use of a wheelchair for functional mobility is strongly recommended and the patient is receptive to using the wheelchair. The use of this wheelchair will significantly improve the patient's ability to participate in MRADLS and the patient will use it on a regular basis in the home. This will facilitate optimal safety, independence, and participation. The patient has demonstrated sufficient physical and mental capabilities needed to safely propel a manual wheelchair that is provided in the home during a typical day. Recommended Wheelchair Frame: STANDARD Recommended Wheelchair Size: 18 X 18 Recommended Wheelchair Cushion:STANDARD Wheelchair Leg Recommendations: BILATERAL ELEVATING SWING AWAY LEG RESTS - Elevating legrests are recommended because the patient has significant edema of the LEFT lower extremity that requires an elevating legrest. -Anti-tippers are recommended due to patient demonstrating increased risk for falls. They would benefit from anti-tippers with added safety and stabilization. Edwige Caruso PTA 08/08/2020 Evaluating Therapist Date I agree with and certify that the above recommendation is medically necessary. Referring Physician Date I agree with and certify that the above recommendation is medically necessary. Referring Physician Date
[2020-08-08 17:20] LABS: Glucose Point of Care 103 (65-105)
[2020-08-08 21:49] VITALS: BP 114/38; PULSE 96; RESP 20; TEMP 36.4; O2SAT 97
[2020-08-08] MEDS: ACETAMINOPHEN 500 MG TABLET 1000 MG PO (22:16)
[2020-08-09 05:59] VITALS: BP 114/53; PULSE 94; RESP 18; TEMP 36.2; O2SAT 96
[2020-08-09 07:14] LABS: Glucose Point of Care 96 (65-105)
[2020-08-09] MEDS: ATORVASTATIN 20 MG TABLET PO (09:21)
[2020-08-09] MEDS: metFORMIN HCL 500 MG TABLET PO ×2 (09:21→17:29)
[2020-08-09] MEDS: ENOXAPARIN 40 MG/0.4 ML SYRINGE SUB-Q (09:21)
[2020-08-09] MEDS: ASPIRIN 81 MG ENTERIC TABLET PO (09:21)
[2020-08-09] MEDS: HYDROCORTISONE 1% 30 GM CREAM 1 APPLIC TOPICAL ×2 (09:21→21:00)
[2020-08-09] MEDS: PANTOPRAZOLE 40 MG TABLET PO ×2 (09:22→17:29)
[2020-08-09] MEDS: IRBESARTAN 150 MG TABLET PO (09:22)
[2020-08-09] MEDS: LIDOCAINE 5% PATCH 2 PATCH TRANSDERM (09:22)
[2020-08-09 14:00] VITALS: BP 97/44; PULSE 100; RESP 18; TEMP 36.7; O2SAT 97
[2020-08-09 15:49] VITALS: BP 101/41; PULSE 97; O2SAT 97
--- NOTE | 2020-08-09 16:39 | WPDNEURORHBP ---
Subjective Date/time seen: 08/09/20 16:39 Interval history: this 79-year-old is here because of having had surgery for the left hip fracture she is doing very well occasional shortness without any chest pain which she has had in the past denies any lateralizing paresthesias or focal weakness but other than that she is has is related to the surgery she has had and she is quite happy with the progress she is making Review of Systems Review of Systems: All systems reviewed & are unremarkable except as noted in HPI and below Functional Status Ambulation Ability Ability to Ambulate 10 Feet: Standby Assistance Ambulation Assistive Devices: Walker, Wheeled Transfers Ability Ability to Transfer In/Out of Chair: Contact Guard Exam Narrative: Exam Narrative: patient is awake alert well oriented time place person is speech language functions are normal cranial examination normal face is symmetrical tongue is midline and gag reflexes intact abdomen stump did tender examination of the chest heart and abdomen is unrevealing the surgery the surgical site is clean and healthy and she is doing much better Objective Data Vital Signs Vital Signs: Vital Signs - 24 hr 08/08/20 21:49 08/09/20 05:59 08/09/20 14:00 Temperature 36.4 C 36.2 C L 36.7 C Pulse Rate 96 94 100 Respiratory Rate 20 18 18 Blood Pressure 114/38 L 114/53 L 97/44 L Pulse Oximetry 97 96 97 08/09/20 15:49 Temperature Pulse Rate 97 Respiratory Rate Blood Pressure 101/41 L Pulse Oximetry 97 Intake/Output Intake/Output: Intake & Output 08/06/20 08/07/20 08/08/20 08/09/20 23:59 23:59 23:59 23:59 Intake Total 720 1200 960 480 Balance 720 1200 960 480 Meds/Results Medications: Active Medications Generic Name Dose Route Start Last Admin Trade Name Freq PRN Reason Stop Dose Admin Acetaminophen 1,000 mg 08/04/20 19:30 08/08/20 22:16 Acetaminophen 500 Mg Tablet PO 1,000 mg Q6H PRN Administration Mild Pain (1-3) Or Fever Aspirin 81 mg 08/05/20 09:00 08/09/20 09:21 Aspirin 81 Mg Enteric Tablet PO 81 mg DAILY BALA Administration Atorvastatin Calcium 20 mg 08/05/20 09:00 08/09/20 09:21 Atorvastatin 20 Mg Tablet PO 20 mg DAILY BALA Administration Diclofenac/Misoprostol 1 tab 08/05/20 09:00 08/09/20 09:21 Diclofenac/Misoprostol 75/200 Tablet.Ec PO 1 tab BID BALA Administration Enoxaparin Sodium 40 mg 08/05/20 09:00 08/09/20 09:21 Enoxaparin 40 Mg/0.4 Ml Syringe SUB-Q 09/01/20 09:01 40 mg DAILY BALA Administration Hydrocortisone 1 applic 08/06/20 09:15 08/09/20 09:21 Hydrocortisone 1% 30 Gm Cream TOPICAL 1 applic Q12HR BALA Administration Irbesartan 150 mg 08/05/20 09:00 08/09/20 09:22 Irbesartan 150 Mg Tablet PO 150 mg DAILY BALA Administration Levofloxacin 250 mg 08/07/20 09:00 08/09/20 09:22 Levofloxacin Tab 250 Mg Tablet PO 08/10/20 09:01 250 mg DAILY BALA Administration Lidocaine 2 patch 08/09/20 09:00 08/09/20 09:22 Lidocaine 5% Patch TRANSDERM 2 patch DAILY BALA Administration Magnesium Hydroxide 30 ml 08/04/20 19:30 Magnesium Hydroxide Susp 30 Ml Udc PO BID PRN Constipation Metformin HCl 500 mg 08/05/20 08:00 08/09/20 09:21 Metformin Hcl 500 Mg Tablet PO 500 mg BIDWM BALA Administration Pantoprazole Sodium 40 mg 08/05/20 09:00 08/09/20 09:22 Pantoprazole 40 Mg Tablet PO 40 mg BID BALA Administration Tramadol HCl 50 mg 08/04/20 19:30 Tramadol Hcl (*Crx) 50 Mg Tablet PO Q6H PRN Pain rated 4-6 Labs Labs: Laboratory Results - last 24 hr 08/08/20 08/09/20 17:17 07:04 POC Capillary Glucose 103 96 Progress Note: A&P Assessment and Plan (1) Leukocytosis: Code(s): D72.829 - Elevated white blood cell count, unspecified Status: Acute (2) UTI (urinary tract infection): Code(s): N39.0 - Urinary tract infection, site not specified Status: Acute (3) S/P ORIF
[2020-08-09 17:01] LABS: Glucose Point of Care 101 (65-105)
[2020-08-09] MEDS: CALCIUM CARBONATE (TUMS) 500 MG (200 MG ELEMENTAL) PO (18:21)
[2020-08-09 20:00] VITALS: PULSE 91; RESP 17; O2SAT 98
[2020-08-09] MEDS: traMADol HCL (*CRX) 50 MG TABLET PO (21:00)
[2020-08-09 22:00] VITALS: BP 121/49; PULSE 91; RESP 17; TEMP 36.8; O2SAT 98
[2020-08-10 06:00] VITALS: BP 118/57; PULSE 91; RESP 17; TEMP 36.4; O2SAT 96
[2020-08-10 06:58] LABS: Glucose Point of Care 86 (65-105)
[2020-08-10] MEDS: ASPIRIN 81 MG ENTERIC TABLET PO (09:05)
[2020-08-10] MEDS: ATORVASTATIN 20 MG TABLET PO (09:05)
[2020-08-10] MEDS: PANTOPRAZOLE 40 MG TABLET PO ×2 (09:06→17:23)
[2020-08-10] MEDS: IRBESARTAN 150 MG TABLET PO (09:06)
[2020-08-10] MEDS: ENOXAPARIN 40 MG/0.4 ML SYRINGE SUB-Q (09:06)
[2020-08-10] MEDS: HYDROCORTISONE 1% 30 GM CREAM 1 APPLIC TOPICAL ×2 (09:07→20:45)
[2020-08-10] MEDS: metFORMIN HCL 500 MG TABLET PO ×2 (09:07→17:23)
[2020-08-10] MEDS: ACETAMINOPHEN 500 MG TABLET 1000 MG PO (09:45)
[2020-08-10 14:00] VITALS: BP 108/50; PULSE 95; RESP 18; TEMP 36.8; O2SAT 100
--- NOTE | 2020-08-10 15:44 | WPDNEURORHBP ---
Subjective Date/time seen: 08/10/20 15:44 Interval history: this pleasant 79-year-old is here after having had surgery for the left hip fracture she is doing very well denies any headache nausea vomiting chest pain shortness of breath fever chills sore throat her vital signs are stable and she is looking forward to go home soon Review of Systems Review of Systems: All systems reviewed & are unremarkable except as noted in HPI and below Functional Status Ambulation Ability Ability to Ambulate 10 Feet: Standby Assistance Ambulation Assistive Devices: Walker, Wheeled Transfers Ability Ability to Transfer In/Out of Chair: Contact Guard Exam Narrative: Exam Narrative: patient is awake alert well oriented time place and person speech and language functions are normal cranial examination normal is strength is improving bilaterally ENT examination is normal eye examination is normal lungs are clear cardiovascular examination stable abdomen is soft and not tender the incision at the surgery on the left hip is clean and healthy without any drainage or sign of infection Objective Data Vital Signs Vital Signs: Vital Signs - 24 hr 08/09/20 15:49 08/09/20 20:00 08/09/20 22:00 Temperature 36.8 C Pulse Rate 97 91 91 Respiratory Rate 17 17 Blood Pressure 101/41 L 121/49 L Pulse Oximetry 97 98 98 08/10/20 06:00 08/10/20 14:00 Temperature 36.4 C 36.8 C Pulse Rate 91 95 Respiratory Rate 17 18 Blood Pressure 118/57 L 108/50 L Pulse Oximetry 96 100 Intake/Output Intake/Output: Intake & Output 08/07/20 08/08/20 08/09/20 08/10/20 23:59 23:59 23:59 23:59 Intake Total 1200 960 480 360 Balance 1200 960 480 360 Meds/Results Medications: Active Medications Generic Name Dose Route Start Last Admin Trade Name Freq PRN Reason Stop Dose Admin Acetaminophen 1,000 mg 08/04/20 19:30 08/10/20 09:45 Acetaminophen 500 Mg Tablet PO 1,000 mg Q6H PRN Administration Mild Pain (1-3) Or Fever Aspirin 81 mg 08/05/20 09:00 08/10/20 09:05 Aspirin 81 Mg Enteric Tablet PO 81 mg DAILY BALA Administration Atorvastatin Calcium 20 mg 08/05/20 09:00 08/10/20 09:05 Atorvastatin 20 Mg Tablet PO 20 mg DAILY BALA Administration Calcium Carbonate 200 mg 08/09/20:33 08/09/20 18:21 Calcium Carbonate (Tums) 500 Mg (200 Mg Elemental) PO 200 mg Q6H PRN Administration Indigestion Diclofenac/Misoprostol 1 tab 08/05/20 09:00 08/10/20 09:05 Diclofenac/Misoprostol 75/200 Tablet.Ec PO 1 tab BID BALA Administration Enoxaparin Sodium 40 mg 08/05/20 09:00 08/10/20 09:06 Enoxaparin 40 Mg/0.4 Ml Syringe SUB-Q 09/01/20 09:01 40 mg DAILY BALA Administration Hydrocortisone 1 applic 08/06/20 09:15 08/10/20 09:07 Hydrocortisone 1% 30 Gm Cream TOPICAL 1 applic Q12HR BALA Administration Irbesartan 150 mg 08/05/20 09:00 08/10/20 09:06 Irbesartan 150 Mg Tablet PO 150 mg DAILY BALA Administration Lidocaine 2 patch 08/09/20 09:00 08/09/20 09:22 Lidocaine 5% Patch TRANSDERM 2 patch DAILY BALA Administration Magnesium Hydroxide 30 ml 08/04/20 19:30 Magnesium Hydroxide Susp 30 Ml Udc PO BID PRN Constipation Metformin HCl 500 mg 08/05/20 08:00 08/10/20 09:07 Metformin Hcl 500 Mg Tablet PO 500 mg BIDWM BALA Administration Pantoprazole Sodium 40 mg 08/05/20 09:00 08/10/20 09:06 Pantoprazole 40 Mg Tablet PO 40 mg BID BALA Administration Tramadol HCl 50 mg 08/04/20 19:30 08/09/20 21:00 Tramadol Hcl (*Crx) 50 Mg Tablet PO 50 mg Q6H PRN Administration Pain rated 4-6 Labs Labs: Laboratory Results - last 24 hr 08/09/20 08/10/20 16:52 06:49 POC Capillary Glucose 101 86 Progress Note: A&P Assessment and Plan (1) Leukocytosis: Code(s): D72.829 - Elevated white blood cell count, unspecified Status: Acute (2) UTI (urinary tract infection): Code(s): N39.0 - Urinary tract infection
[2020-08-10 17:39] LABS: Glucose Point of Care 98 (65-105)
--- NOTE | 2020-08-10 18:52 | PC.NURSE ---
left hip dressing changed
[2020-08-10] MEDS: traMADol HCL (*CRX) 50 MG TABLET PO (20:44)
[2020-08-10 22:00] VITALS: BP 125/53; PULSE 98; RESP 18; TEMP 36.4; O2SAT 98
[2020-08-11 06:00] VITALS: BP 126/58; PULSE 100; RESP 18; TEMP 36.1; O2SAT 96
[2020-08-11 07:01] LABS: Glucose Point of Care 98 (65-105)
[2020-08-11] MEDS: LIDOCAINE 5% PATCH 2 PATCH TRANSDERM (08:38)
[2020-08-11] MEDS: ASPIRIN 81 MG ENTERIC TABLET PO (08:39)
[2020-08-11] MEDS: metFORMIN HCL 500 MG TABLET PO ×2 (08:39→17:05)
[2020-08-11] MEDS: HYDROCORTISONE 1% 30 GM CREAM 1 APPLIC TOPICAL ×2 (08:40→20:16)
[2020-08-11] MEDS: PANTOPRAZOLE 40 MG TABLET PO ×2 (08:40→17:05)
[2020-08-11] MEDS: ATORVASTATIN 20 MG TABLET PO (08:40)
[2020-08-11] MEDS: ENOXAPARIN 40 MG/0.4 ML SYRINGE SUB-Q (08:40)
[2020-08-11] MEDS: IRBESARTAN 150 MG TABLET PO (08:40)
[2020-08-11 14:00] VITALS: BP 114/58; PULSE 103; RESP 18; TEMP 36.4; O2SAT 98
[2020-08-11 16:56] LABS: Glucose Point of Care 93 (65-105)
[2020-08-11 20:00] VITALS: PULSE 88; RESP 18; O2SAT 100
[2020-08-11] MEDS: traMADol HCL (*CRX) 50 MG TABLET PO (20:15)
[2020-08-11 20:20] VITALS: BP 115/45; PULSE 88; RESP 18; TEMP 36.9; O2SAT 100
[2020-08-12 04:43] LABS: Basophils Percent Auto 0.3 % (0.2-1.2); Eosinophils Absolute Auto 0.5 K/mm3 (0-0.3); Eosinophils Percent Auto 6.6 % (0-4.4); Hematocrit 22.5 % (37.0-47.0); Hemoglobin 7.3 g/dL (12.0-15.0); Immature Granulocyte Absolute 0.06 K/mm3 (0.00-0.031); Immature Granulocyte Percent A 0.9 % (0-0.5); Lymphocytes Absolute Auto 1.28 K/mm3 (0.9-3.2); Lymphocytes Percent Auto 18.9 % (18.3-44.2); Mean Corpuscular HGB Conc 32.4 g/dl (32-36); Mean Corpuscular Hemoglobin 32.6 pg (26-34); Mean Corpuscular Volume 100.4 fl (80-100); Monocytes Absolute Auto 0.6 K/mm3 (0.1-0.6); Monocytes Percent Auto 9.1 % (2.6-8.5); Neutrophils Absolute Auto 4.4 K/mm3 (1.3-6.7); Neutrophils Percent Auto 64.2 % (45.5-73.1); Platelet Count Result 329 k/mm3 (150-375); Red Blood Count 2.24 M/mm3 (4.2-5.4); Red Cell Distribution Width 14.1 % (11.5-14.5); White Blood Count 6.8 K/mm3 (4.5-10.0)
[2020-08-12 04:59] LABS: Anion Gap 5 mmol/L (8-16); Blood Urea Nitrogen 27 mg/dL (7-17); Calcium 8.3 mg/dL (8.4-10.2); Carbon Dioxide 26 mmol/L (22-30); Chloride 105 mmol/L (98-107); Estimated CRCL calculation 27 ml/min; Estimated Glomerular Filt Rate 39; Glucose 105 mg/dL (65-105); Potassium 4.8 mmol/L (3.4-5.0); Sodium 136 mmol/L (137-145)
[2020-08-12 05:20] VITALS: BP 109/47; PULSE 94; RESP 18; TEMP 36.1; O2SAT 99
[2020-08-12 06:54] LABS: Glucose Point of Care 100 (65-105)
--- NOTE | 2020-08-12 08:04 | PCPTNOTE ---
Ephraim Marrufo was evaluated for a wheeled walker on 08/12/2020 by this physical therapist. The wheeled walker will resolve patient's mobility limitations and will be used for ADL's within the home. The patient can safely use the wheeled walker. ?The wheeled walker will resolve the patient?s mobility deficits, including impaired strength, impaired balance, and pain. Sandra Posey, PT, DPT
[2020-08-12] MEDS: ASPIRIN 81 MG ENTERIC TABLET PO (08:17)
[2020-08-12] MEDS: PANTOPRAZOLE 40 MG TABLET PO ×2 (08:17→17:13)
[2020-08-12] MEDS: ENOXAPARIN 40 MG/0.4 ML SYRINGE SUB-Q (08:17)
[2020-08-12] MEDS: metFORMIN HCL 500 MG TABLET PO ×2 (08:17→17:13)
[2020-08-12] MEDS: IRBESARTAN 150 MG TABLET PO (08:17)
[2020-08-12] MEDS: ACETAMINOPHEN 500 MG TABLET 1000 MG PO (08:18)
[2020-08-12] MEDS: HYDROCORTISONE 1% 30 GM CREAM 1 APPLIC TOPICAL (08:18)
[2020-08-12] MEDS: ATORVASTATIN 20 MG TABLET PO (08:18)
--- NOTE | 2020-08-12 12:31 | WPDNEURORHBP ---
Subjective Date/time seen: 08/12/20 12:31 Interval history: this 79-year-old woman is here after having had surgery for the left hip fracture she is doing very well denies any headache nausea vomiting chest pain shortness of breath fever chills sore throat she complains of occasional dizziness so have asked the nurse to cut down her Irbasartan to 75 milligrams daily and continue rest of the management Review of Systems Review of Systems: All systems reviewed & are unremarkable except as noted in HPI and below Functional Status Ambulation Ability Ability to Ambulate 10 Feet: Contact Guard Ambulation Assistive Devices: Walker, Wheeled Transfers Ability Ability to Transfer In/Out of Chair: Independent Exam Narrative: Exam Narrative: patient's remains awake alert a beat denies any headache nausea vomiting chest pain shortness of breath not any distress eyes ear nose throat normal neck is supple lungs are clear cardiovascular exam shows stable abdomen soft nontender extremities reveal no deformities the incision of the left hip surgeries clean and healthy and she is making progress quite a bit Objective Data Vital Signs Vital Signs: Vital Signs - 24 hr 08/11/20 14:00 08/11/20 20:00 08/11/20 20:20 Temperature 36.4 C L 36.9 C Pulse Rate 103 H 88 88 Respiratory Rate 18 18 18 Blood Pressure 114/58 L 115/45 L Pulse Oximetry 98 100 100 08/12/20 05:20 Temperature 36.1 C L Pulse Rate 94 Respiratory Rate 18 Blood Pressure 109/47 L Pulse Oximetry 99 Intake/Output Intake/Output: Intake & Output 08/09/20 08/10/20 08/11/20 08/12/20 23:59 23:59 23:59 23:59 Intake Total 320 137 8326 360 Balance 779 615 3264 360 Meds/Results Medications: Active Medications Generic Name Dose Route Start Last Admin Trade Name Freq PRN Reason Stop Dose Admin Acetaminophen 1,000 mg 08/04/20 19:30 08/12/20 08:18 Acetaminophen 500 Mg Tablet PO 1,000 mg Q6H PRN Administration Mild Pain (1-3) Or Fever Aspirin 81 mg 08/05/20 09:00 08/12/20 08:17 Aspirin 81 Mg Enteric Tablet PO 81 mg DAILY BALA Administration Atorvastatin Calcium 20 mg 08/05/20 09:00 08/12/20 08:18 Atorvastatin 20 Mg Tablet PO 20 mg DAILY BALA Administration Calcium Carbonate 200 mg 08/09/20 17:33 08/09/20 18:21 Calcium Carbonate (Tums) 500 Mg (200 Mg Elemental) PO 200 mg Q6H PRN Administration Indigestion Diclofenac/Misoprostol 1 tab 08/05/20 09:00 08/12/20 08:17 Diclofenac/Misoprostol 75/200 Tablet.Ec PO 1 tab BID BALA Administration Enoxaparin Sodium 40 mg 08/05/20 09:00 08/12/20 08:17 Enoxaparin 40 Mg/0.4 Ml Syringe SUB-Q 09/01/20 09:01 40 mg DAILY BALA Administration Hydrocortisone 1 applic 08/06/20 09:15 08/12/20 08:18 Hydrocortisone 1% 30 Gm Cream TOPICAL 1 applic Q12HR BALA Administration Irbesartan 75 mg 08/13/20 09:00 Irbesartan 75 Mg Tablet PO QAM BALA Lidocaine 2 patch 08/09/20 09:00 08/12/20 08:16 Lidocaine 5% Patch TRANSDERM Not Given DAILY BALA Magnesium Hydroxide 30 ml 08/04/20 19:30 Magnesium Hydroxide Susp 30 Ml Udc PO BID PRN Constipation Metformin HCl 500 mg 08/05/20 08:00 08/12/20 08:17 Metformin Hcl 500 Mg Tablet PO 500 mg BIDWM BALA Administration Pantoprazole Sodium 40 mg 08/05/20 09:00 08/12/20 08:17 Pantoprazole 40 Mg Tablet PO 40 mg BID BALA Administration Tramadol HCl 50 mg 08/04/20 19:30 08/11/20 20:15 Tramadol Hcl (*Crx) 50 Mg Tablet PO 50 mg Q6H PRN Administration Pain rated 4-6 Labs Labs: Laboratory Results - last 24 hr 08/11/20 08/12/20 08/12/20 16:51 04:30 04:31 WBC 6.8 RBC 2.24 L Hgb 7.3 L Hct 22.5 L MCV 100.4 H MCH 32.6 MCHC 32.4 RDW 14.1 Plt Count 329 MPV 8.0 Immature Gran % (Auto) 0.9 H Neut % (Auto) 64.2 Lymph % (Auto) 18.9 [place] % (Auto) 9.1 H Eos % (Auto) 6.6 H Baso % (Auto) 0.3 Lymph # (Auto) 1.
[2020-08-12 14:00] VITALS: BP 112/56; PULSE 110; RESP 18; TEMP 36.7; O2SAT 100
[2020-08-12 17:05] LABS: Glucose Point of Care 91 (65-105)
[2020-08-12] MEDS: MAGNESIUM HYDROXIDE SUSP 30 ML UDC PO (18:27)
[2020-08-12] MEDS: traMADol HCL (*CRX) 50 MG TABLET PO (20:20)
[2020-08-12 22:00] VITALS: BP 99/58; PULSE 93; RESP 16; TEMP 36.8; O2SAT 99
[2020-08-13 06:00] VITALS: BP 130/53; PULSE 95; RESP 16; TEMP 36.2; O2SAT 94
[2020-08-13 06:57] LABS: Glucose Point of Care 87 (65-105)
[2020-08-13 09:15] VITALS: PULSE 100; RESP 16; O2SAT 98
[2020-08-13] MEDS: metFORMIN HCL 500 MG TABLET PO ×2 (09:15→17:40)
[2020-08-13] MEDS: ASPIRIN 81 MG ENTERIC TABLET PO (09:16)
[2020-08-13] MEDS: ENOXAPARIN 40 MG/0.4 ML SYRINGE SUB-Q (09:16)
[2020-08-13] MEDS: ATORVASTATIN 20 MG TABLET PO (09:16)
[2020-08-13] MEDS: IRBESARTAN 75 MG TABLET PO (09:17)
[2020-08-13] MEDS: PANTOPRAZOLE 40 MG TABLET PO ×2 (09:17→17:41)
[2020-08-13] MEDS: ACETAMINOPHEN 500 MG TABLET 1000 MG PO ×2 (09:20→20:26)
--- NOTE | 2020-08-13 12:22 | WPDNEURORHBP ---
Subjective Date/time seen: 08/13/20 12:22 Interval history: this pleasant 79-year-old is here status post surgery for the left hip fracture she is doing remarkably well and happy with the care she is receiving she is walking quite a bit denies any headache nausea vomiting chest pain shortness of breath fever chills sore throat and looking forward to be going Review of Systems Review of Systems: All systems reviewed & are unremarkable except as noted in HPI and below Functional Status Ambulation Ability Ability to Ambulate 10 Feet: Standby Assistance Ambulation Assistive Devices: Walker, Wheeled Transfers Ability Ability to Transfer In/Out of Chair: Independent Exam Narrative: Exam Narrative: patient is awake alert well oriented in time place and person not any distress vital head and neck examination is normal lungs are clear cardiovascular examination stable abdomen soft nontender extremities reveal no deformities the incision from the left hip open reduction and internal function is clean and healthy she is walking fairly good distance with a walker of course Objective Data Vital Signs Vital Signs: Vital Signs - 24 hr 08/12/20 14:00 08/12/20 22:00 08/13/20 06:00 Temperature 36.7 C 36.8 C 36.2 C L Pulse Rate 110 H 93 95 Respiratory Rate 18 16 16 Blood Pressure 112/56 L 99/58 L 130/53 L Pulse Oximetry 100 99 94 Intake/Output Intake/Output: Intake & Output 08/10/20 08/11/20 08/12/20 08/13/20 23:59 23:59 23:59 23:59 Intake Total 360 1020 840 240 Balance 360 1020 840 240 Meds/Results Medications: Active Medications Generic Name Dose Route Start Last Admin Trade Name Gabinoq PRN Reason Stop Dose Admin Acetaminophen 1,000 mg 08/04/20 19:30 08/13/20 09:20 Acetaminophen 500 Mg Tablet PO 1,000 mg Q6H PRN Administration Mild Pain (1-3) Or Fever Aspirin 81 mg 08/05/20 09:00 08/13/20 09:16 Aspirin 81 Mg Enteric Tablet PO 81 mg DAILY BALA Administration Atorvastatin Calcium 20 mg 08/05/20 09:00 08/13/20 09:16 Atorvastatin 20 Mg Tablet PO 20 mg DAILY BALA Administration Calcium Carbonate 200 mg 08/09/20 17:33 08/09/20 18:21 Calcium Carbonate (Tums) 500 Mg (200 Mg Elemental) PO 200 mg Q6H PRN Administration Indigestion Diclofenac/Misoprostol 1 tab 08/05/20 09:00 08/13/20 09:16 Diclofenac/Misoprostol 75/200 Tablet.Ec PO 1 tab BID BALA Administration Enoxaparin Sodium 40 mg 08/05/20 09:00 08/13/20 09:16 Enoxaparin 40 Mg/0.4 Ml Syringe SUB-Q 09/01/20 09:01 40 mg DAILY BALA Administration Hydrocortisone 1 applic 08/06/20 09:15 08/12/20 08:18 Hydrocortisone 1% 30 Gm Cream TOPICAL 1 applic Q12HR BALA Administration Irbesartan 75 mg 08/13/20 09:00 08/13/20 09:17 Irbesartan 75 Mg Tablet PO 75 mg QAM BALA Administration Lidocaine 2 patch 08/09/20 09:00 08/12/20 08:16 Lidocaine 5% Patch TRANSDERM Not Given DAILY BALA Magnesium Hydroxide 30 ml 08/04/20 19:30 08/12/20 18:27 Magnesium Hydroxide Susp 30 Ml Udc PO 30 ml BID PRN Administration Constipation Metformin HCl 500 mg 08/05/20 08:00 08/13/20 09:15 Metformin Hcl 500 Mg Tablet PO 500 mg BIDWM BALA Administration Pantoprazole Sodium 40 mg 08/05/20 09:00 08/13/20 09:17 Pantoprazole 40 Mg Tablet PO 40 mg BID BALA Administration Tramadol HCl 50 mg 08/04/20 19:30 08/12/20 20:20 Tramadol Hcl (*Crx) 50 Mg Tablet PO 50 mg Q6H PRN Administration Pain rated 4-6 Labs Labs: Laboratory Results - last 24 hr 08/12/20 08/13/20 16:59 06:47 POC Capillary Glucose 91 87 Progress Note: A&P Assessment and Plan (1) FABRIZIO (acute kidney injury): Code(s): N17.9 - Acute kidney failure, unspecified Status: Resolved (2) S/P ORIF (open reduction internal fixation) fracture: Code(s): Z98.890 - Other specified postprocedural states; Z87.81 - Personal history of (healed) traumatic fracture Status:
--- NOTE | 2020-08-13 13:18 | PCNFU ---
Nutrition Follow-Up Complete: Predicted suboptimal nutrient intake related to unpredictable fluctuation in appetite, as evidenced by pt interview and intake records. Pt will consume 90% of all meals. Goal: achieved. Pt current nutrition is diabetic carbohydrate consistent, which is appropriate. Nutrition recommendation: pt continue to abide by diabetic carbohydrate consistency post discharge. Last recorded weight is 72.2 kg, recommend updating weight. Bowel Motility: last BM recorded from nurse spreadsheet on 08/13 Labs Reviewed: RBC (2.24), Ca (8.3), Hgb (7.3), Hct (22.5), Na (136), BUN (27), Cr (1.3) Meds Noted: Protonix, Metformin, Lovenox, Tramadol, Lipitor Additional Notes: Integumentary integrity WNL Except: bruising on left medial thigh; rash on back; incision on left hip and knee. Monitor pt. intake and output; follow up in 7 days.
--- NOTE | 2020-08-13 13:36 | PCNSR ---
On 08/13/20, the student, Kaylin Cuellar, provided care and completed [facility] documentation on this patient. I have reviewed the student's documentation and agree with the findings.
[2020-08-13 14:00] VITALS: BP 112/48; PULSE 102; RESP 16; TEMP 36.2; O2SAT 98
[2020-08-13 17:01] LABS: Glucose Point of Care 100 (65-105)
[2020-08-13] MEDS: HYDROCORTISONE 1% 30 GM CREAM 1 APPLIC TOPICAL (20:28)
[2020-08-13 22:00] VITALS: BP 143/52; PULSE 99; RESP 18; TEMP 36.4; O2SAT 95
[2020-08-14] MEDS: HYDROCORTISONE 1% 30 GM CREAM 1 APPLIC TOPICAL (05:31)
[2020-08-14 06:00] VITALS: BP 138/63; PULSE 98; RESP 19; TEMP 36.3; O2SAT 100
[2020-08-14 06:33] LABS: Glucose Point of Care 80 (65-105)
[2020-08-14] MEDS: ASPIRIN 81 MG ENTERIC TABLET PO (08:44)
[2020-08-14] MEDS: ATORVASTATIN 20 MG TABLET PO (08:44)
[2020-08-14] MEDS: PANTOPRAZOLE 40 MG TABLET PO ×2 (08:45→17:23)
[2020-08-14] MEDS: metFORMIN HCL 500 MG TABLET PO ×2 (08:45→17:22)
[2020-08-14] MEDS: IRBESARTAN 75 MG TABLET PO (08:46)
[2020-08-14] MEDS: ENOXAPARIN 40 MG/0.4 ML SYRINGE SUB-Q (08:46)
[2020-08-14] MEDS: ACETAMINOPHEN 500 MG TABLET 1000 MG PO ×2 (08:47→21:01)
[2020-08-14 14:00] VITALS: BP 123/52; PULSE 97; RESP 20; TEMP 36.9; O2SAT 100
[2020-08-14 22:00] VITALS: BP 137/49; PULSE 92; RESP 17; TEMP 36.6; O2SAT 100
[2020-08-15] MEDS: traMADol HCL (*CRX) 50 MG TABLET PO (01:35)
[2020-08-15 06:00] VITALS: BP 147/56; PULSE 96; RESP 19; TEMP 36.2; O2SAT 96
[2020-08-15] MEDS: ACETAMINOPHEN 500 MG TABLET 1000 MG PO ×3 (06:27→21:14)
[2020-08-15 06:42] LABS: Glucose Point of Care 90 (65-105)
[2020-08-15] MEDS: ASPIRIN 81 MG ENTERIC TABLET PO (09:29)
[2020-08-15] MEDS: metFORMIN HCL 500 MG TABLET PO ×2 (09:29→17:48)
[2020-08-15] MEDS: ATORVASTATIN 20 MG TABLET PO (09:29)
[2020-08-15] MEDS: PANTOPRAZOLE 40 MG TABLET PO ×2 (09:29→17:48)
[2020-08-15] MEDS: ENOXAPARIN 40 MG/0.4 ML SYRINGE SUB-Q (09:29)
[2020-08-15] MEDS: IRBESARTAN 75 MG TABLET PO (09:30)
--- NOTE | 2020-08-15 11:19 | WPDNEURORHBP ---
Subjective Date/time seen: 08/15/20 11:19 Interval history: this 79-year-old is here after having had the surgery for the left fracture she has done remarkably well and looking forward to be going home in couple of days she denies any headache nausea vomiting chest pain shortness of breath fever chills sore throat Review of Systems Review of Systems: All systems reviewed & are unremarkable except as noted in HPI and below Functional Status Ambulation Ability Ability to Ambulate 10 Feet: Independent Ability to Ambulate 50 Feet With 2 Turns: Independent Ambulation Assistive Devices: Walker, Wheeled Transfers Ability Ability to Transfer In/Out of Chair: Independent Exam Narrative: Exam Narrative: patient is awake alert well oriented time place and person speech and language functions are normal cranial exam is in normal neck is supple lungs are clear cardiovascular examination stable abdomen soft nontender incision of the left hip surgery is clean and healthy Objective Data Vital Signs Vital Signs: Vital Signs - 24 hr 08/14/20 14:00 08/14/20 22:00 08/15/20 06:00 Temperature 36.9 C 36.6 C 36.2 C L Pulse Rate 97 92 96 Respiratory Rate 19 Blood Pressure 123/52 L 137/49 L 147/56 H Pulse Oximetry 100 100 96 Intake/Output Intake/Output: Intake & Output 08/12/20 08/13/20 08/14/20 08/15/20 23:59 23:59 23:59 23:59 Intake Total 840 720 720 240 Balance 840 720 720 240 Meds/Results Medications: Active Medications Generic Name Dose Route Start Last Admin Trade Name Freq PRN Reason Stop Dose Admin Acetaminophen 1,000 mg 08/04/20 19:30 08/15/20 06:27 Acetaminophen 500 Mg Tablet PO 1,000 mg Q6H PRN Administration Mild Pain (1-3) Or Fever Aspirin 81 mg 08/05/20 09:00 08/15/20 09:29 Aspirin 81 Mg Enteric Tablet PO 81 mg DAILY BALA Administration Atorvastatin Calcium 20 mg 08/05/20 09:00 08/15/20 09:29 Atorvastatin 20 Mg Tablet PO 20 mg DAILY BALA Administration Calcium Carbonate 200 mg 08/09/20 17:33 08/09/20 18:21 Calcium Carbonate (Tums) 500 Mg (200 Mg Elemental) PO 200 mg Q6H PRN Administration Indigestion Diclofenac/Misoprostol 1 tab 08/05/20 09:00 08/15/20 09:29 Diclofenac/Misoprostol 75/200 Tablet.Ec PO 1 tab BID BALA Administration Enoxaparin Sodium 40 mg 08/05/20 09:00 08/15/20 09:29 Enoxaparin 40 Mg/0.4 Ml Syringe SUB-Q 09/01/20 09:01 40 mg DAILY BALA Administration Hydrocortisone Acetate 25 mg 08/14/20 15:03 Hydrocortisone Acetate 25 Mg Suppository RECTAL Q12HR PRN COMFORT Irbesartan 75 mg 08/13/20 09:00 08/15/20 09:30 Irbesartan 75 Mg Tablet PO 75 mg QAM BALA Administration Magnesium Hydroxide 30 ml 08/04/20 19:30 08/12/20 18:27 Magnesium Hydroxide Susp 30 Ml Udc PO 30 ml BID PRN Administration Constipation Metformin HCl 500 mg 08/05/20 08:00 08/15/20 09:29 Metformin Hcl 500 Mg Tablet PO 500 mg BIDWM BALA Administration Pantoprazole Sodium 40 mg 08/05/20 09:00 08/15/20 09:29 Pantoprazole 40 Mg Tablet PO 40 mg BID BALA Administration Tramadol HCl 50 mg 08/04/20 19:30 08/15/20 01:35 Tramadol Hcl (*Crx) 50 Mg Tablet PO 50 mg Q6H PRN Administration Pain rated 4-6 Labs Labs: Laboratory Results - last 24 hr 08/15/20 06:31 POC Capillary Glucose 90 Progress Note: A&P Assessment and Plan (1) S/P ORIF (open reduction internal fixation) fracture: Code(s): Z98.890 - Other specified postprocedural states; Z87.81 - Personal history of (healed) traumatic fracture Status: Acute (2) FABRIZIO (acute kidney injury): Code(s): N17.9 - Acute kidney failure, unspecified Status: Resolved (3) Diabetes: Qualifiers: Diabetes mellitus type: type 2 Diabetes mellitus group home insulin use: without group home use Diabetes mellitus complication status: without complication Qualified Code(s): E11.9 - Type 2 diabetes m
[2020-08-15 14:00] VITALS: BP 123/53; PULSE 72; RESP 20; TEMP 36.8; O2SAT 89
--- NOTE | 2020-08-15 14:37 | PC.NURSE ---
All greta removed from 3 separate incision sites, they were removed without difficulty, no signs of infection. steri-strips applied to incision lines.. Patient tolerated well
--- NOTE | 2020-08-15 16:37 | PM.PNORT ---
Progress Note: A&P Assessment and Plan (1) S/P ORIF (open reduction internal fixation) fracture: Code(s): Z98.890 - Other specified postprocedural states; Z87.81 - Personal history of (healed) traumatic fracture Status: Acute Assessment and Plan: Lennie 79 year old female 2 weeks status post ORIF left comminuted intertrochanteric fracture with long Cephalomedullary nail. Patient doing well with Therapy. She has plans to return home Tuesday, this is reasonable. Drainage from incision likely from greta. She will call if drainage continues. Ordered X-ray of femur before she returns home. She will call the office Tuesday to make a follow up appointment. Subjective Subjective Date/Time Seen: 08/15/20 16:37 Patient is 2 weeks Post op Left ORIF intertrochanteric fracture with long Cephalomedullary nail. Patient is currently in Rehab. She states she is doing well. Pain less each day. She has been having some swelling in her feet and legs. Left worse then right. She is ambulating with a walker. States she has been working hard with Therapy. She is pleased with her progress. No numbness or tingling. She and her nurse were worried about drainage from incisions. Nurse states that when she came to Rehab she had a large amount of clear/yellow drainage. Drainage has gone down significantly since then. [place] taken out around 2:00 today. No drainage since removing greta. Patient states she is planing on going home Tuesday. She will call the office to set up a follow up appointment. Exam Const: General: cooperative, healthy appearing, comfortable, no acute distress, well developed and alert Orientation/consciousness: patient oriented x3 Skin: General skin exam: normal color Other: Small dime sized skin abrasion at proximal lateral leg proximal to incision. 3 incisions well healed. [place] out. SteriStrips applied. No obvious location of drainage. No drainage currently. Previous dressing with 2 inch by 1 inch area of clear and yellow drainage. Extrem: General: normal to inspection, capillary refill normal, no calf tenderness and edema (left worse then right ) Right lower extremity: full ROM Left lower extremity: edema Other: Wound healing well. Thigh soft. No hematoma. Distal neurologic status intact. Objective Data Vital Signs Vital Signs: Vital Signs - 24 hr 08/14/20 22:00 08/15/20 06:00 08/15/20 14:00 Temperature 97.9 F 97.2 F L 98.2 F Pulse Rate 92 96 72 Respiratory Rate 20 Blood Pressure 137/49 L 147/56 H 123/53 L Pulse Oximetry 100 96 89 L Intake/Output Intake/Output: Intake & Output 08/12/20 08/13/20 08/14/20 08/15/20 23:59 23:59 23:59 23:59 Intake Total 840 720 720 480 Balance 840 720 720 480 Meds/Results Medications: Active Medications Generic Name Dose Route Start Last Admin Trade Name Freq PRN Reason Stop Dose Admin Acetaminophen 1,000 mg 08/04/20 19:30 08/15/20 12:54 Acetaminophen 500 Mg Tablet PO 1,000 mg Q6H PRN Administration Mild Pain (1-3) Or Fever Aspirin 81 mg 08/05/20 09:00 08/15/20 09:29 Aspirin 81 Mg Enteric Tablet PO 81 mg DAILY BALA Administration Atorvastatin Calcium 20 mg 08/05/20 09:00 08/15/20 09:29 Atorvastatin 20 Mg Tablet PO 20 mg DAILY BALA Administration Calcium Carbonate 200 mg 08/09/20 17:33 08/09/20 18:21 Calcium Carbonate (Tums) 500 Mg (200 Mg Elemental) PO 200 mg Q6H PRN Administration Indigestion Diclofenac/Misoprostol 1 tab 08/05/20 09:00 08/15/20 09:29 Diclofenac/Misoprostol 75/200 Tablet.Ec PO 1 tab BID BALA Administration Enoxaparin Sodium 40 mg 08/05/20 09:00 08/15/20 09:29 Enoxaparin 40 Mg/0.4 Ml Syringe SUB-Q 09/01/20 09:01 40 mg DAILY BALA Administration Hydrocortisone Acetate 25 mg 08/14/20 15:03 Hydrocortisone Acetate 25 Mg Suppository RECTAL Q12HR PRN COMFORT Irbesartan 75 mg 08/13/20 09:00 08/15/20 09:30 Irbesartan 75 Mg Tablet PO 75 mg
[2020-08-15 17:22] LABS: Glucose Point of Care 92 (65-105)
[2020-08-15 20:41] VITALS: BP 134/52; PULSE 89; RESP 18; TEMP 36.9; O2SAT 96
[2020-08-16 05:16] VITALS: BP 139/58; PULSE 97; RESP 18; TEMP 36.2; O2SAT 96
[2020-08-16 06:44] LABS: Glucose Point of Care 95 (65-105)
[2020-08-16] MEDS: ACETAMINOPHEN 500 MG TABLET 1000 MG PO ×2 (09:08→20:54)
[2020-08-16] MEDS: ASPIRIN 81 MG ENTERIC TABLET PO (09:09)
[2020-08-16] MEDS: ATORVASTATIN 20 MG TABLET PO (09:09)
[2020-08-16] MEDS: ENOXAPARIN 40 MG/0.4 ML SYRINGE SUB-Q (09:09)
[2020-08-16] MEDS: metFORMIN HCL 500 MG TABLET PO ×2 (09:09→18:11)
[2020-08-16] MEDS: IRBESARTAN 75 MG TABLET PO (09:10)
[2020-08-16] MEDS: PANTOPRAZOLE 40 MG TABLET PO ×2 (09:10→18:11)
[2020-08-16 14:00] VITALS: BP 136/63; PULSE 103; RESP 18; TEMP 36.9; O2SAT 99
--- NOTE | 2020-08-16 14:40 | WPDNEURORHBP ---
Subjective Date/time seen: 08/16/20 14:40 79 years old lady with history of displaced comminuted intertrochanteric fracture of the left hip in addition to type 2 diabetes mellitus with peripheral neuropathy, hypertension and hyperlipidemia being treated on the rehab floor x-rays on revealed the aura of left comminuted intertrochanteric fracture in expected position Review of Systems Review of Systems: All systems reviewed & are unremarkable except as noted in HPI and below Functional Status Ambulation Ability Ability to Ambulate 10 Feet: Independent Ability to Ambulate 50 Feet With 2 Turns: Independent Ambulation Assistive Devices: Walker, Wheeled Transfers Ability Ability to Transfer In/Out of Chair: Independent Exam Narrative: Exam Narrative: he is independently walking up to 2 turns with a wheeled walker and 50ft her head is normocephalic, ears nose throat examination is normal, neck is supple with no cervical bruit, no thyromegaly no lymphadenopathy heart regular with no murmur, lungs clear to auscultation, abdomen is soft with no organomegaly and neuro examination is essentially unchanged Objective Data Vital Signs Vital Signs: Vital Signs - 24 hr 08/15/20 20:41 08/16/20 05:16 08/16/20 14:00 Temperature 36.9 C 36.2 C L 36.9 C Pulse Rate 89 97 103 H Respiratory Rate 18 18 18 Blood Pressure 134/52 L 139/58 L 136/63 Pulse Oximetry 96 96 99 Intake/Output Intake/Output: Intake & Output 08/13/20 08/14/20 08/15/20 08/16/20 23:59 23:59 23:59 23:59 Intake Total 720 720 480 480 Balance 720 720 480 480 Meds/Results Medications: Active Medications Generic Name Dose Route Start Last Admin Trade Name Freq PRN Reason Stop Dose Admin Acetaminophen 1,000 mg 08/04/20 19:30 08/16/20 09:08 Acetaminophen 500 Mg Tablet PO 1,000 mg Q6H PRN Administration Mild Pain (1-3) Or Fever Aspirin 81 mg 08/05/20 09:00 08/16/20 09:09 Aspirin 81 Mg Enteric Tablet PO 81 mg DAILY BALA Administration Atorvastatin Calcium 20 mg 08/05/20 09:00 08/16/20 09:09 Atorvastatin 20 Mg Tablet PO 20 mg DAILY BALA Administration Calcium Carbonate 200 mg 08/09/20 17:33 08/09/20 18:21 Calcium Carbonate (Tums) 500 Mg (200 Mg Elemental) PO 200 mg Q6H PRN Administration Indigestion Diclofenac/Misoprostol 1 tab 08/05/20 09:00 08/16/20 09:09 Diclofenac/Misoprostol 75/200 Tablet.Ec PO 1 tab BID BALA Administration Enoxaparin Sodium 40 mg 08/05/20 09:00 08/16/20 09:09 Enoxaparin 40 Mg/0.4 Ml Syringe SUB-Q 09/01/20 09:01 40 mg DAILY BALA Administration Hydrocortisone Acetate 25 mg 08/14/20 15:03 Hydrocortisone Acetate 25 Mg Suppository RECTAL Q12HR PRN COMFORT Irbesartan 75 mg 08/13/20 09:00 08/16/20 09:10 Irbesartan 75 Mg Tablet PO 75 mg QAM BALA Administration Magnesium Hydroxide 30 ml 08/04/20 19:30 08/12/20 18:27 Magnesium Hydroxide Susp 30 Ml Udc PO 30 ml BID PRN Administration Constipation Metformin HCl 500 mg 08/05/20 08:00 08/16/20 09:09 Metformin Hcl 500 Mg Tablet PO 500 mg BIDWM BALA Administration Pantoprazole Sodium 40 mg 08/05/20 09:00 08/16/20 09:10 Pantoprazole 40 Mg Tablet PO 40 mg BID BALA Administration Tramadol HCl 50 mg 08/04/20 19:30 08/15/20 01:35 Tramadol Hcl (*Crx) 50 Mg Tablet PO 50 mg Q6H PRN Administration Pain rated 4-6 Radiology Results: ITS Impressions Femur X-Ray 08/15/20 17:31 IMPRESSION: ORIF left hip comminuted intertrochanteric fracture in expected position. Labs Labs: Laboratory Results - last 24 hr 08/15/20 08/16/20 17:19 06:30 POC Capillary Glucose 92 95 Progress Note: A&P Assessment and Plan (1) Leukocytosis: Code(s): D72.829 - Elevated white blood cell count, unspecified Status: Acute (2) UTI (urinary tract infection): Code(s): N39.0 - Urinary tract infection, site not specified Status: A
[2020-08-16 16:57] LABS: Glucose Point of Care 105 (65-105)
[2020-08-16 20:01] VITALS: BP 125/49; PULSE 89; RESP 18; TEMP 36.3; O2SAT 100
[2020-08-17 04:41] VITALS: BP 136/58; PULSE 83; RESP 18; TEMP 36.2; O2SAT 97
[2020-08-17] MEDS: ACETAMINOPHEN 500 MG TABLET 1000 MG PO (06:44)
[2020-08-17 06:54] LABS: Glucose Point of Care 87 (65-105)
[2020-08-17] MEDS: ASPIRIN 81 MG ENTERIC TABLET PO (09:19)
[2020-08-17] MEDS: IRBESARTAN 75 MG TABLET PO (09:19)
[2020-08-17] MEDS: ENOXAPARIN 40 MG/0.4 ML SYRINGE SUB-Q (09:19)
[2020-08-17] MEDS: metFORMIN HCL 500 MG TABLET PO (09:19)
[2020-08-17] MEDS: PANTOPRAZOLE 40 MG TABLET PO (09:19)
[2020-08-17] MEDS: ATORVASTATIN 20 MG TABLET PO (09:19)
[2020-08-17] MEDS: traMADol HCL (*CRX) 50 MG TABLET PO (10:47)
--- NOTE | 2020-08-22 14:22 | PM.DS ---
DS: Admitting Diagnosis Admitting Diagnosis Admitting Diagnosis: ADMISSION FUNCTION: Eating [Set Up Only] Oral Care [] Toileting Hygiene [] Shower/Bathing [] Upper Body Dressing [] Lower Body Dressing [] Donning/[place] Footwear [] Rolling Left and Right [] Sit to Lying [] Lying to Sitting [] Sit to Stand [] Bed to Chair Transfers [] Toilet Transfers [] Car Transfers [] Walking 10' [] Walking 50' with Two Turns [] Walking 150' [] Curb or Step [] 4 Steps [] 12 Steps [] Picking Up Object [] [Wheelchair Mobility 50'] [] [Wheelchair Mobility 150'] [] GOALS: Eating [INDEPENDENT] Oral Care [INDEPENDENT] Toileting Hygiene [INDEPENDENT] Shower/Bathing [INDEPENDENT] Upper Body Dressing [INDEPENDENT] Lower Body Dressing [INDEPENDENT] Donning/[place] Footwear [INDEPENDENT] Rolling Left and Right [INDEPENDENT] Sit to Lying [INDEPENDENT] Lying to Sitting [INDEPENDENT] Sit to Stand [INDEPENDENT] Bed to Chair Transfers [INDEPENDENT] Toilet Transfers [INDEPENDENT] Car Transfers [INDEPENDENT] Walking 10' [INDEPENDENT] Walking 50' with Two Turns [INDEPENDENT] Walking 150' [INDEPENDENT] Curb or Step [INDEPENDENT] 4 Steps [INDEPENDENT] 12 Steps [INDEPENDENT] Picking Up Object [INDEPENDENT] [Wheelchair Mobility 50'] [INDEPENDENT] [Wheelchair Mobility 150'] [INDEPENDENT] DISCHARGE PERFORMANCE: Eating [INDEPENDENT] Oral Care [INDEPENDENT] Toileting Hygiene [INDEPENDENT] Shower/Bathing [INDEPENDENT] Upper Body Dressing [INDEPENDENT] Lower Body Dressing [INDEPENDENT] Donning/[place] Footwear [INDEPENDENT] Rolling Left and Right [INDEPENDENT] Sit to Lying [INDEPENDENT] Lying to Sitting [INDEPENDENT] Sit to Stand [INDEPENDENT] Bed to Chair Transfers [INDEPENDENT] Toilet Transfers [INDEPENDENT] Car Transfers [INDEPENDENT] Walking 10' [INDEPENDENT] Walking 50' with Two Turns [INDEPENDENT] Walking 150' [INDEPENDENT] Curb or Step [INDEPENDENT] 4 Steps [INDEPENDENT] 12 Steps [INDEPENDENT] Picking Up Object [INDEPENDENT] [Wheelchair Mobility 50'] [INDEPENDENT] [Wheelchair Mobility 150'] [INDEPENDENT] The patient had [no falls]. Left hip fracture/surgery DS: Summary Time Spent with Patient Time attestation: Total time spent providing and/or coordinating discharge services: Discharge Plan Discharge Attending physician on discharge: Karel Whtit Consulting providers: Darron Llanos Discharging Clinician: Karel Whitt Anticipated Discharge Date/Time: 08/17/20 11:24 Patient Disposition: Home Health Service Activity: may shower and no driving Diet: as tolerated Wound Care Instructions: follow printed instructions Discharge Instructions: Per Care Coordination: Home Health services were arranged through [facility]. [facility] can be contacted at [phone]. Patient Instructions: Antibiotic Form, Enoxaparin (By injection), Pain Management (GEN) Stand Alone Forms: General Discharge Information Follow-up/Referrals: Darron Llanos MD [Other] (Call the office on tuesdayAug 18, for a follow up appointment) Surinder Romano MD [Other] (Follow up in 1 week.) Discharge Medications: New metformin [Glucophage] 500 mg Tablet 500 mg PO BIDWM Qty: 60 RF: 0 irbesartan [Avapro] 75 mg Tablet 75 mg PO QAM Qty: 30 RF: 0 Continued aspirin [Adult Aspirin Regimen] 81 mg tablet,delayed release (DR/EC) 81 mg PO DAILY RF: 0 diclofenac-misoprostol 75-200 mg-mcg tablet,IR,delayed rel,biphasic 1 tablet PO BID Qty: 60 RF: 0 atorvastatin 20 mg tablet 20 mg PO DAILY Qty: 3 RF: 0 omeprazole 40 mg capsule,delayed release(DR/EC) 40 mg PO DAILY Qty: 30 RF: 0 tramadol 50 mg tablet 50 mg PO Q6H PRN (Reason: Pain) Qty: 45 RF: 0 enoxaparin [Lovenox] 40 mg/0.4 mL Syringe 40 mg subcut DAILY Qty: 6 RF: 0 acetaminophen 500 mg Tablet 1,000 mg PO Q6H PRN (Reason: Mild Pain (1-3) Or Fever) Qty: 10 RF: 0 Discontinued amlodipine 5 mg tablet 5 mg P
--- NOTE | 2020-08-22 14:24 | PM.DS ---
DS: Admitting Diagnosis Admitting Diagnosis Admitting Diagnosis: Left hip fracture/surgery 79 years old right-handed female admitted to the rehab floor with the etiological diagnosis of comminuted displaced intertrochanteric fracture of the left hip in addition to the comorbid conditions of 1. Type 2 diabetes mellitus with peripheral neuropathy 2. Hypertension 3. Hyperlipidemia as per the information available at the time of admission she turn around in the kitchen and somehow tripped and fell and landed on her left hip she did not become unconscious though she sustained a closed head trauma but developed instant pain in her left hip and was unable to get up she was brought to the emergency room where it was documented that she has [place] in [place] did intertrochanteric fracture of the left femur for which she underwent left or if ORIF with Medrol early nailing by Dr. Perera and was placed on weight-bearing as tolerated to the left lower extremity postop she was noted to have hypotension, anemia hyperglycemia and hyponatremia in addition to hypo med needs see Ashlie which was attributed to the acute blood loss subsequently she was stabilized her hemoglobin A1c was 5.8 she was transferred to the see for further rehab during the hospitalization here she continue to be involved in the physical therapy and occupational therapy she was able to ambulate up to 50ft with 2 turns independently using a wheeled walker and was able to transfer in and out of chair independently her general physical examination remained stable. At the time of discharge she was independent in eating oral hygiene correlating bathing upper body dressing lower body dressing foot fair rolling in bed sitting to lying lying to sit [id number] chair transfer toilet transfer car transfer walking 10ft 50ft with 2 turns walking 10ft on uneven surfaces curb step 4 steps picking up objects and wheelchair 50ft and 150ft DS: Summary Time Spent with Patient Time attestation: Total time spent providing and/or coordinating discharge services: Discharge Plan Discharge Attending physician on discharge: Karel Whitt Consulting providers: Darron Llanos Discharging Clinician: Karel Whitt Anticipated Discharge Date/Time: 08/17/20 11:24 Patient Disposition: Home Health Service Activity: may shower and no driving Diet: as tolerated Wound Care Instructions: follow printed instructions Discharge Instructions: Per Care Coordination: Home Health services were arranged through [facility]. [facility] can be contacted at [phone]. Patient Instructions: Antibiotic Form, Enoxaparin (By injection), Pain Management (GEN) Stand Alone Forms: General Discharge Information Follow-up/Referrals: Darron Llanos MD [Other] (Call the office on tuesdayAug 18, for a follow up appointment) Surinder Romano MD [Other] (Follow up in 1 week.) Discharge Medications: New metformin [Glucophage] 500 mg Tablet 500 mg PO BIDWM Qty: 60 RF: 0 irbesartan [Avapro] 75 mg Tablet 75 mg PO QAM Qty: 30 RF: 0 Continued aspirin [Adult Aspirin Regimen] 81 mg tablet,delayed release (DR/EC) 81 mg PO DAILY RF: 0 diclofenac-misoprostol 75-200 mg-mcg tablet,IR,delayed rel,biphasic 1 tablet PO BID Qty: 60 RF: 0 atorvastatin 20 mg tablet 20 mg PO DAILY Qty: 3 RF: 0 omeprazole 40 mg capsule,delayed release(DR/EC) 40 mg PO DAILY Qty: 30 RF: 0 tramadol 50 mg tablet 50 mg PO Q6H PRN (Reason: Pain) Qty: 45 RF: 0 enoxaparin [Lovenox] 40 mg/0.4 mL Syringe 40 mg subcut DAILY Qty: 6 RF: 0 acetaminophen 500 mg Tablet 1,000 mg PO Q6H PRN (Reason: Mild Pain (1-3) Or Fever) Qty: 10 RF: 0 Discontinued amlodipine 5 mg tablet 5 mg PO DAILY RF: 0 Hold Instructions: Hold due to hypotension. irbesartan 150 mg tablet 150 mg PO DAILY RF: 0 hydrochlorothiazide 12.5 mg Tablet 12.5 mg PO DAILY RF: 0 Hold Instructions: Hold due to hypo
== END 2020-08-17 10:50 | disposition home health service (06) | DRG 560 ==
PROVIDERS: Admitting Provider Psychiatry & Neurology Neurology; PCP Internal Medicine; Visit Provider Psychiatry & Neurology Neurology
DX: S72.142D Displaced intertrochanteric fracture of left femur, subsequent encounter for closed fracture with routine healing (principal); E87.1 Hypo-osmolality and hyponatremia; S09.90XD Unspecified injury of head, subsequent encounter; E11.42 Type 2 diabetes mellitus with diabetic polyneuropathy; E78.5 Hyperlipidemia, unspecified; E83.51 Hypocalcemia; I10 Essential (primary) hypertension; L57.0 Actinic keratosis; M54.5 Low back pain; Z90.89 Acquired absence of other organs; Z79.82 Long term (current) use of aspirin; Z85.828 Personal history of other malignant neoplasm of skin; Z87.891 Personal history of nicotine dependence; Z79.84 Long term (current) use of oral hypoglycemic drugs; W19.XXXD Unspecified fall, subsequent encounter
CPT/HCPCS: 36415; 73552; 80048; 83036; 85025; 97110; 97116; 97161; 97166; 97530; 97535; 97542; A9270; J1650

== ENCOUNTER 2021-10-15 16:55 | Emergency (ER) | payer MEDICARE, SELFPAY ==
[2021-10-15 17:17] VITALS: BP 144/73; PULSE 91; RESP 16; TEMP 36.4; O2SAT 100
--- NOTE | 2021-10-15 17:18 | PC.NURSE ---
in br to obtain ua spec.
--- NOTE | 2021-10-15 17:43 | PC.NURSE ---
in br to obtain ua spec.
--- NOTE | 2021-10-15 17:56 | PC.NURSE ---
cont. to attempt urine collection.
--- NOTE | 2021-10-15 18:37 | PC.NURSE ---
metal window screen assembler in with pt and daughter.
--- NOTE | 2021-10-15 18:48 | ED.FEMALEGU ---
HPI - Female Genitourinary General Chief complaint: Urogenital-Female Stated complaint: uti Source: patient, family and RN notes reviewed History of Present Illness HPI Narrative: This is a 81-year-old female that presented to urgent care with complaints of incontinence, pelvic pain, and painful urination. According to patient last week she was admitted into the hospital for surgical procedure on her back, she noted while she was there she had urinary retention in had to be catheterized she notes that she had a large amount of output. Patient notes that since then she has felt like she is not emptying her bladder. The patient denies SOB, CP, palpitation, hematuria extremity numbness, lightheadedness, dizziness, constipation, diarrhea, chills, or fever. Patient will be treated for UTI she will also be given Flomax for her urinary retention and instructed to follow-up with a urologist. Related Data Home Medications Medication Instructions Recorded Confirmed aspirin 81 mg tablet,delayed 81 mg PO DAILY 11/05/19 12/25/20 release cholecalciferol (vitamin D3) 10 10 mcg PO DAILY 12/25/20 12/25/20 mcg (400 unit) capsule cyanocobalamin (vitamin B-12) 1,000 mcg PO DAILY 12/25/20 12/25/20 1,000 mcg capsule hydrochlorothiazide 10/15/21 methocarbamol mg 10/15/21 Allergies Allergy/AdvReac Type Severity Reaction Status Date / Time No Known Allergies Allergy Verified 11/10/20 16:12 Review of Systems Review of Systems: A 14 organ system Review of Systems was performed and pertinent positives included in the HPI, otherwise remaining ROS is negative. [facility] Past Medical History Medical History Diabetes Hyperlipidemia Hypertension Melanoma UTI (urinary tract infection) Surgical History Surgical History History of ankle surgery History of cholecystectomy Family History Family History Father CHF (congestive heart failure) Sibling CHF (congestive heart failure) Social History Social History Smoking packs per day: 2 Smoking cigarettes per day: 40.0 Years smoked: 25 Smoking pack-years: 50.00 Smoking status: Former smoker Alcohol intake: never Substance use: never Spiritual care concerns: No Exam Narrative: GENERAL: This is a well-nourished, well-developed patient, in no apparent distress. HEAD: normocephalic, atraumatic. EYES: PERRL. Sclera clear/white. Vision is grossly intact. EARS: External ears normal, auditory canals clear and without drainage, TMs normal without perforation. Hearing grossly intact. NOSE: External nose normal with no obvious nasal discharge, nares without redness, no rhinorrhea. THROAT: Mucous membranes moist, posterior pharynx clear. NECK: Neck supple, non-tender without lymphadenopathy, masses or thyromegaly. CARDIOVASCULAR: Regular rate and rhythm without murmurs, gallops, or rubs. RESPIRATORY: Clear to auscultation. Breath sounds equal bilaterally. No wheezes, rales, or rhonchi. GASTROINTESTINAL: Abdomen soft, pelvic tenderness nondistended. Bowel sounds are active. No hepato-splenomegaly, or palpable masses. No guarding. SKIN: warm, intact with no suspicious lesions or rash, good texture and turgor. NEURO: awake, alert, and oriented to person, place and time. There were no obvious focal neurologic abnormalities. Steady gait EXTREMITIES: Normal range of motion. No edema. No calf tenderness. Negative Homans sign bilaterally. BACK: Nontender without deformity or crepitance. No flank tenderness. Course Course Emergency Course: Patient will be given Macrobid to treat her urinary tract infection she will also be given Flomax for urinary retention UA positive for leukocytes Vital Signs Vital signs: Vital Signs Temperature 97.6 F 10/15/21 17:1
== END 2021-10-15 18:54 | disposition home or self-care (01) ==
PROVIDERS: Emergency Provider Nurse Practitioner
DX: N39.0 Urinary tract infection, site not specified (principal); R33.9 Retention of urine, unspecified; F17.210 Nicotine dependence, cigarettes, uncomplicated; E11.9 Type 2 diabetes mellitus without complications; E78.5 Hyperlipidemia, unspecified; I10 Essential (primary) hypertension; Z85.820 Personal history of malignant melanoma of skin; Z79.82 Long term (current) use of aspirin
CPT/HCPCS: 81003; 87086; 99213; G0463

== ENCOUNTER → 2021-12-03 11:02 | Outpatient (REF) | payer MEDICARE, SELFPAY | LOC: ANHLAB 11:02 | PROVIDERS: Visit Provider Nurse Practitioner | DX: L57.0 Actinic keratosis (principal) | CPT/HCPCS: 88305 ==

== ENCOUNTER 2021-12-07 13:35 | Outpatient (CLI) | payer MEDICARE, SELFPAY ==
--- NOTE | ~2021-12-07 | XR_ITS ---
EXAMINATION: XR abdomen/kub 1V DATE: 12/07/2021 13:55 INDICATION: Constipation. TECHNIQUE: A supine view of the abdomen on 2 radiographs was obtained. COMPARISON: None. FINDINGS: There are no dilated loops of bowel. There is a moderate volume of stool in the colon. Surg ical clips in the right upper quadrant are likely from cholecystectomy. There is internal fixation of left femur. IMPRESSION: 1. Nonobstructive bowel gas pattern. Reviewed, dictated and finalized at location A. RNED CASE INSPECTOR
== END 2021-12-07 13:36 | disposition home or self-care (01) ==
PROVIDERS: PCP Internal Medicine; Visit Provider Urology
DX: K59.00 Constipation, unspecified (principal)
CPT/HCPCS: 74018

== ENCOUNTER 2022-01-16 13:15 | Emergency (ER) | payer MEDICARE, SELFPAY ==
--- NOTE | ~2022-01-16 | XR_ITS ---
EXAMINATION: XR ankle LT min 3V DATE: 01/16/2022 13:32 INDICATION: Lateral left ankle pain and swelling post fall TECHNIQUE: Anteroposterior, oblique, mortise, and lateral views of the left ankle were obtained. COMPARISON: None. FINDINGS: There is an oblique fracture through the distal fibula with a fracture plane exiting medially at the level of the tibiotalar joint. There is minimal displacement. No other fracture identified. Specifi ishmael the medial and posterior malleoli as well as the talar dome are intact. Ankle mortise remains congruent.Moderate-sized plantar calcaneal spur. Polyarticular osteoarthritis, moderate severity at t his couple of the tarsal metatarsal joints and mild at the remaining joints in the mid and hindfoot. Soft tissue swelling overlying the lateral malleolus. No ankle joint effusion. IMPRESSION: 1. Minimally displaced oblique fracture of the distal left fibula consistent with a Watson type B inju ry pattern. Reviewed, dictated and finalized at location A. IMPRESSION: 1. Minimally displaced oblique fracture of the distal left fibula consistent wi th a Watson type B injury pattern.
[2022-01-16 13:21] VITALS: BP 140/76; PULSE 74; RESP 12; TEMP 36.4; O2SAT 100
--- NOTE | 2022-01-16 13:22 | ED.LOWEXIN ---
HPI - Extremity Injury (Lower) General Chief Complaint: Extremity Injury, Lower Stated Complaint: L ANKLE INJURY Time Seen by Provider: 01/16/22 13:20 Source: patient, family, RN notes reviewed and old records reviewed Mode of arrival: ambulatory Limitations: no limitations History of Present Illness HPI Narrative: 81 year old female who presents to [facility] care with complaints of injury to her left ankle which occurred about 1 hour prior to arrival to clinic. Patient reports that she was trying to move bed using her foot and felt a pop. Daughter accompanied patient to clinic and states grandsons were on their way over to her residence to move bed but patient just couldn't wait. Patient states that they just moved her back to their apartment at [place] from [facility]. Patient has had previous fracture to left hip and was cared for by Dr Llanos and wishes to follow up with him.Patient has noted swelling with bruising to lateral aspect of left ankle area with patient stating increased pain with any weight bearing, flexion and extension of foot. MD complaint: ankle injury Onset (ago): hour(s) (1) Injury: Left: ankle (lateral region) Type of Injury: eversion Place: home Severity: moderate Severity scale (1-10): 5 Exacerbating factors: weight bearing and movement Associated symptoms: snap/pop sensation Treatments prior to arrival: cold therapy Related Data Home Medications Medication Instructions Recorded Confirmed aspirin 81 mg tablet,delayed 81 mg PO DAILY 11/05/19 01/16/22 release cholecalciferol (vitamin D3) 10 5,000 unit PO DAILY cap 12/03/21 01/16/22 mcg (400 unit) capsule coenzyme Q10 10 mg capsule 10 mg PO DAILY cap 12/03/21 01/16/22 cyanocobalamin (vitamin B-12) 500 mcg PO DAILY cap 12/03/21 01/16/22 1,000 mcg capsule hydrochlorothiazide 25 mg tablet 25 mg PO DAILY tablet 12/03/21 01/16/22 irbesartan 75 mg tablet 150 mg PO QPM tablet 12/03/21 01/16/22 Allergies Allergy/AdvReac Type Severity Reaction Status Date / Time No Known Allergies Allergy Verified 01/16/22 13:21 Review of Systems Review of Systems: CONSTITUTIONAL: Denies fever, chills, or sweats. EYES: Denies visual changes, redness, or discharge. ENT: Denies rhinorrhea, congestion, sore throat, or otalgia. CARDIOVASCULAR: Denies chest pain, palpitations, or edema. RESPIRATORY: Denies cough or dyspnea. GASTROINTESTINAL: Denies abdominal pain, nausea, vomiting, or diarrhea. GENITOURINARY: Denies dysuria or hematuria. SKIN: Denies rash or itching. MUSCULOSKELETAL: Denies back pain, positive for left lateral ankle joint pain with swelling and bruising present, or myalgia. NEUROLOGIC: Denies headache, numbness, or weakness. PSYCHIATRIC: Denies anxiety or depression. All systems reviewed & are unremarkable except as noted in HPI and below PMFSH Past Medical History Medical History (Updated 01/16/22 @ 18:02 by Brigette Robb NP) Arthritis Diabetes Fracture of left hip requiring operative repair Hyperlipidemia Hypertension Intertrochanteric fracture of left hip Melanoma UTI (urinary tract infection) Surgical History Surgical History History of ankle surgery History of cholecystectomy Family History Family History (Updated 01/16/22 @ 17:57 by Brigette Robb NP) Father CHF (congestive heart failure) Skin cancer Sibling CHF (congestive heart failure) Mother Skin cancer Social History Social History (Updated 01/16/22 @ 17:57 by Brigette Robb NP) Smoking packs per day: 2 Smoking cigarettes per day: 40.0 Years smoked: 25 Smoking pack-years: 50.00 Smoking status: Former smoker Alcohol intake: never Substance use: never Gender identity (if verbalized by the patient): Female Spiritual care concerns: No Comments At time of signature, agree with nursing past medical, surgical, social and family history. There is no relevan
== END 2022-01-16 14:14 | disposition home or self-care (01) ==
PROVIDERS: Emergency Provider Registered Nurse; PCP Internal Medicine
DX: S82.832A Other fracture of upper and lower end of left fibula, initial encounter for closed fracture (principal); X50.0XXA Overexertion from strenuous movement or load, initial encounter; M19.90 Unspecified osteoarthritis, unspecified site; E11.9 Type 2 diabetes mellitus without complications; E78.5 Hyperlipidemia, unspecified; I10 Essential (primary) hypertension; Z85.820 Personal history of malignant melanoma of skin; Z87.891 Personal history of nicotine dependence
CPT/HCPCS: 29515; 73610; 99214; G0463